=== PATIENT | male | born 1950 | race Two or more races ===

== ENCOUNTER 2016-07-15 19:34 | Emergency (ER) | payer MEDICARE, OTHER ==
[~2016-07-15] VITALS: Ht 175.3 cm; Wt 70.8 kg
[~2016-07-15 19:34] MED LIST: CLOP75TA28; DARUNAVIR; DOCU-94; EMTR200C4; GLIP-110; HYDR25TA4; METF-370; METO-291; PRAVACHOL; RIFA150C; RITO100T; ZOLP10TA PO
[2016-07-16 01:14] LABS: Basophils # (auto) 0 uL; Basophils % (auto) 0.3 % (0.0-2.0); Eosinophils # (auto) 0 uL; Eosinophils % (auto) 0.3 % (0.0-7.0); Hematocrit 38.4 % (41.0-53.0); Hemoglobin 12.6 g/dL (13.5-17.5); Lymphocytes # (auto) 0.5 uL; Lymphocytes % (auto) 8.2 % (10.0-50.0); Mean Corpuscular Hemoglobin 27.7 pg (28.0-32.0); Mean Corpuscular Hgb Conc. 32.9 g/dL (32.0-36.0); Mean Corpuscular Volume 84.2 fL (80.0-100.0); Mean Platelet Volume 6.4 fL (7.4-10.4); Monocytes # (auto) 0.8 uL; Monocytes % (auto) 13.1 % (0.0-12.0); Neutrophils % (auto) 78.1 % (37.0-80.0); Platelet Count (auto) 161 10^3/uL (140-450); Red Cell Distribution Width 12.8 % (11.6-16.0); SUSPECT VIEW TRANSMISSION; White Blood Cell 6.3 10^3/uL (4.4-10.8)
[2016-07-16] MEDS ORDERED: SODIUM CHLORIDE 0.9% 1,000 ML IVB ONE (01:14)
[2016-07-16 01:32] LABS: Albumin 2.9 g/dL (3.4-5.0); BUN/Creatinine Ratio 18.7; Calcium 8.4 mg/dL (8.5-10.1); Potassium 4.2 mmol/L (3.5-5.1)
[2016-07-16 01:35] LABS: Bilirubin, Total 1.1 mg/dL (0.2-1.0); Total Protein 7.4 g/dL (6.4-8.2)
[2016-07-16 01:37] LABS: Magnesium 2.7 mg/dL (1.6-2.6)
[2016-07-16 01:39] LABS: INR 0.96 (0.9-1.15); Partial Thromboplastin Time 27.7 sec (22.64-33.71); Prothrombin Time 10.5 sec (9.37-12.3)
[2016-07-16 01:56] LABS: Temperature: 23.1 C (20.0-25.0)
[2016-07-16] MEDS ORDERED: SODIUM CHLORIDE 0.9% 1,000 ML IV ONE (02:45)
[2016-07-16 07:28] LABS: BUN/Creatinine Ratio 23.6; Calcium 7.4 mg/dL (8.5-10.1); Potassium 3.4 mmol/L (3.5-5.1)
[2016-07-16 07:42] VITALS: BP 112/67
== END 2016-07-16 09:26 | disposition home or self-care (01) ==
LOC: ER 19:40
DX: N17.9 Acute kidney failure, unspecified (principal); I25.810 Atherosclerosis of coronary artery bypass graft(s) without angina pectoris; E11.9 Type 2 diabetes mellitus without complications; I10 Essential (primary) hypertension; Z95.1 Presence of aortocoronary bypass graft; F17.210 Nicotine dependence, cigarettes, uncomplicated
CPT/HCPCS: 36415; 70450; 71010; 80048; 80053; 82962; 83735; 83880; 84484; 85025; 85610; 85730; 93005; 96360; 96361; 99285; J7030

== ENCOUNTER 2016-12-25 13:42 | Inpatient (IN) | payer MEDICARE, OTHER ==
[~2016-12-25] VITALS: Ht 175.3 cm; Wt 75.1 kg
[~2016-12-25 13:42] MED LIST changes: -METO-291; +METO1TAB9
[2016-12-25] MEDS ORDERED: DEXTROSE (50%) 50ML SYRG IV PRN (15:15)
[2016-12-25] MEDS ORDERED: PROMETHAZINE HCL 25 MG/ML 1ML IV PRN (15:15)
[2016-12-25] MEDS ORDERED: ATORVASTATIN 20 MG TAB PO ONE (15:15)
[2016-12-25] MEDS ORDERED: ASPirin 81 mg TAB PO ONE (15:15)
[2016-12-25] MEDS ORDERED: LACTULOSE 20Gm/30ML SOLN PO PRN (15:15)
[2016-12-25] MEDS ORDERED: TEMAZEPAM 15 MG CAP PO PRN (15:15)
[2016-12-25] MEDS ORDERED: ACETAMINOPHEN 500 MG TAB PO PRN (15:15)
[2016-12-25] MEDS ORDERED: NITROGLYCERIN 0.4 MG SL TAB SL PRN (15:15)
[2016-12-25] MEDS ORDERED: LORazepam 0.5 MG TAB PO PRN (15:15)
[2016-12-25] MEDS ORDERED: MORPHINE SULFATE 10 MG/ML INJ 1ML SDV IV PRN (15:15)
[2016-12-25 15:36] LABS: INR 0.98 (0.9-1.15); Partial Thromboplastin Time 26.1 sec (22.64-33.71); Prothrombin Time 10.7 sec (9.37-12.3)
[2016-12-25 15:39] LABS: Blood Alcohol < 3.0 mg/dL (0-5); Magnesium 2.3 mg/dL (1.6-2.6)
[2016-12-25 15:44] LABS: Alanine Aminotransferase 18 U/L (16-61); Alkaline Phosphatase 125 U/L (45-117); Anion Gap 6 (5-15); Aspartate Aminotransferase 14 U/L (15-37); BUN/Creatinine Ratio 14.5; Bilirubin, Total 0.6 mg/dL (0.2-1.0); Blood Urea Nitrogen 18 mg/dL (7-18); Calcium 8.5 mg/dL (8.5-10.1); Carbon Dioxide 27 mmol/L (21-32); Chloride 103 mmol/L (98-107); GFR African American 75 mL/min; GFR Non-African American 62 mL/min; Glucose 194 mg/dL (74-106); Potassium 3.8 mmol/L (3.5-5.1); Sodium 136 mmol/L (136-145); Total Protein 7.4 g/dL (6.4-8.2)
[2016-12-25 16:16] LABS: Basophils # (auto) 0 uL; Basophils % (auto) 0.6 % (0.0-2.0); Eosinophils # (auto) 0.1 uL; Eosinophils % (auto) 1.8 % (0.0-7.0); Hematocrit 36.9 % (41.0-53.0); Hemoglobin 12.4 g/dL (13.5-17.5); Lymphocytes % (auto) 20.1 % (10.0-50.0); Mean Corpuscular Hemoglobin 28.3 pg (28.0-32.0); Mean Corpuscular Hgb Conc. 33.7 g/dL (32.0-36.0); Mean Corpuscular Volume 83.9 fL (80.0-100.0); Monocytes # (auto) 0.4 uL; Monocytes % (auto) 8.9 % (0.0-12.0); Neutrophils # (auto) 3.2 uL; Neutrophils % (auto) 68.6 % (37.0-80.0); Nucleated Red Blood Cells % 0.2 %; Platelet Count (auto) 153 10^3/uL (140-450); Red Blood Cells 4.39 10^6/uL (4.5-5.90); Red Cell Distribution Width 14.3 % (11.8-14.3); White Blood Cell 4.7 10^3/uL (4.4-10.8)
[2016-12-25] MEDS: SODIUM CHLORIDE 0.9% 1,000 ML IV SCH (16:48)
[2016-12-25] MEDS: InsuLIN REG 1unit/0.01ml Soln (100units/ml) SC SCH ×2 (17:31→21:58)
[2016-12-25] MEDS: ACCU-CHEK COMFORT CURVE STRIP VI SCH ×2 (17:31→21:58)
[2016-12-25 18:08] LABS: Cholesterol 148 mg/dL (< 200); HDL Cholesterol 35 mg/dL (40-59); LDL Cholesterol 97 mg/dL (< 100); Triglycerides 263 mg/dL (< 150)
[2016-12-25] MEDS: MORPHINE SULFATE 10 MG/ML INJ 1ML SDV IV PRN (20:26)
[2016-12-25 21:35] VITALS: BP 148/85
[2016-12-25] MEDS: GABAPENTIN 100 MG CAP PO SCH (21:58)
[2016-12-25 22:00] VITALS: BP 148/85
[2016-12-25] MEDS: ATORVASTATIN 20 MG TAB PO SCH (22:00)
[2016-12-25] MEDS ORDERED: ZOLPIDEM TARTRATE 5 MG TAB PO PRN (22:00)
[2016-12-25] MEDS: HYDROcodone-ACET 5/325MG TAB PO PRN (22:26)
[2016-12-26] MEDS: MORPHINE SULFATE 10 MG/ML INJ 1ML SDV IV PRN ×3 (00:06→22:20)
[2016-12-26] MEDS ORDERED: CARV25TA55 PO (01:53)
[2016-12-26] MEDS ORDERED: LOSA25TA9 PO (01:53)
[2016-12-26] MEDS ORDERED: AMLO5TAB2 PO (01:53)
[2016-12-26] MEDS ORDERED: DOLU50TA PO (01:53)
[2016-12-26] MEDS ORDERED: PREG75CA PO (01:53)
[2016-12-26] MEDS ORDERED: GLIM1TAB2 PO (01:53)
[2016-12-26] MEDS ORDERED: DARU800T2 OR (01:56)
[2016-12-26] MEDS: SODIUM CHLORIDE 0.9% 1,000 ML IV SCH ×2 (03:32→16:27)
[2016-12-26 04:49] VITALS: BP 127/68
[2016-12-26] MEDS ORDERED: INFLUENZA QUAD 2017-2018 0.5 ML SYRG IM ONE (05:00)
[2016-12-26] MEDS ORDERED: PNEUMOCOCCAL VACC POLYS 25 MCG/0.5 ML VIAL IM ONE (05:00)
[2016-12-26 05:52] LABS: Cholesterol 148 mg/dL (< 200); HDL Cholesterol 35 mg/dL (40-59); LDL Cholesterol 98 mg/dL (< 100); Triglycerides 168 mg/dL (< 150)
[2016-12-26] MEDS: ACCU-CHEK COMFORT CURVE STRIP VI SCH ×4 (06:12→22:10)
[2016-12-26] MEDS: InsuLIN REG 1unit/0.01ml Soln (100units/ml) SC SCH ×4 (06:13→22:11)
[2016-12-26 09:00] VITALS: BP 136/83
[2016-12-26] MEDS: DOCUSATE SOD 100 MG CAP PO SCH (09:19)
[2016-12-26] MEDS: HCTZ 25 MG TAB PO SCH (09:20)
[2016-12-26] MEDS: GABAPENTIN 100 MG CAP PO SCH ×2 (09:21→21:28)
[2016-12-26] MEDS: CLOPIDOGREL BISULFATE 75 MG TAB PO SCH (09:21)
[2016-12-26] MEDS: METOPROLOL SUCCINATE XL 50 MG TAB PO SCH (09:22)
[2016-12-26] MEDS: DARUNAVIR PO SCH (09:23)
[2016-12-26] MEDS: EMTRICITABINE 200 MG PO SCH (09:23)
[2016-12-26] MEDS: RIFABUTIN 150 MG PO SCH (09:24)
[2016-12-26] MEDS: RITONAVIR 100 MG TAB (NORVIR) PO SCH (09:24)
[2016-12-26] MEDS ORDERED: ASPirin 81 mg TAB PO SCH (10:00)
[2016-12-26] MEDS ORDERED: ENOXAPARIN SOD 40 MG/0.4 ML SYRINGE SC SCH (10:00)
[2016-12-26 13:00] VITALS: BP 155/78
[2016-12-26 14:32] LABS: Folate (Folic Acid) 18.57 ng/mL (5.38-24)
[2016-12-26 17:00] VITALS: BP 153/77
[2016-12-26] MEDS: HYDROcodone-ACET 5/325MG TAB PO PRN (20:14)
[2016-12-26] MEDS: ATORVASTATIN 20 MG TAB PO SCH (21:28)
[2016-12-26 22:00] VITALS: BP 143/88
[2016-12-26 22:10] LABS: Urine Bacteria NONE SEEN /hpf (None Seen); Urine Blood Negative /uL (Negative); Urine WBC 1 /hpf (0 - 3)
[2016-12-26 22:27] LABS: Alcohol, Urine < 3.0 mg/dL (0-5); Amphetamine Screen, Urine NEGATIVE (NEGATIVE); Barbiturate Scree,Urine NEGATIVE (NEGATIVE); Benzodiazephine Screen, Urine NEGATIVE (NEGATIVE); Cannabinoid Screen, Urine NEGATIVE (NEGATIVE); Cocaine Screen, Urine NEGATIVE (NEGATIVE); Opiate Scree,Urine POSITIVE (NEGATIVE); Phencyclidine Screen, Urine NEGATIVE (NEGATIVE)
[2016-12-27 05:00] VITALS: BP 143/79
[2016-12-27] MEDS: SODIUM CHLORIDE 0.9% 1,000 ML IV SCH (06:24)
[2016-12-27] MEDS: ACCU-CHEK COMFORT CURVE STRIP VI SCH ×2 (06:24→11:30)
[2016-12-27] MEDS: InsuLIN REG 1unit/0.01ml Soln (100units/ml) SC SCH ×2 (06:24→13:53)
[2016-12-27 08:40] VITALS: BP 154/79
[2016-12-27] MEDS: HCTZ 25 MG TAB PO SCH (09:19)
[2016-12-27] MEDS: DOCUSATE SOD 100 MG CAP PO SCH (09:20)
[2016-12-27] MEDS: CLOPIDOGREL BISULFATE 75 MG TAB PO SCH (09:20)
[2016-12-27] MEDS: METOPROLOL SUCCINATE XL 50 MG TAB PO SCH (09:20)
[2016-12-27] MEDS: GABAPENTIN 100 MG CAP PO SCH (09:21)
[2016-12-27] MEDS: RITONAVIR 100 MG TAB (NORVIR) PO SCH (09:22)
[2016-12-27] MEDS: DARUNAVIR PO SCH (10:00)
[2016-12-27] MEDS: RIFABUTIN 150 MG PO SCH (10:00)
[2016-12-27] MEDS: EMTRICITABINE 200 MG PO SCH (10:00)
[2016-12-27 11:11] VITALS: BP 154/79
[2016-12-27] MEDS: MORPHINE SULFATE 10 MG/ML INJ 1ML SDV IV PRN (11:23)
== END 2016-12-27 14:20 | disposition home or self-care (01) | DRG 69 ==
LOC: ER 13:42 → TELE 13:43 → TELE-EAST 21:35
PROVIDERS: ADMIT Internal Medicine; ATTEND Internal Medicine
DX: G45.9 Transient cerebral ischemic attack, unspecified (principal); B20 Human immunodeficiency virus [HIV] disease; E11.21 Type 2 diabetes mellitus with diabetic nephropathy; N18.3 Chronic kidney disease, stage 3 (moderate); E11.42 Type 2 diabetes mellitus with diabetic polyneuropathy; E11.22 Type 2 diabetes mellitus with diabetic chronic kidney disease; E78.5 Hyperlipidemia, unspecified; F17.210 Nicotine dependence, cigarettes, uncomplicated; G47.00 Insomnia, unspecified; I12.9 Hypertensive chronic kidney disease with stage 1 through stage 4 chronic kidney disease, or unspecified chronic kidney disease; I25.10 Atherosclerotic heart disease of native coronary artery without angina pectoris; Z79.02 Long term (current) use of antithrombotics/antiplatelets; Z79.899 Other long term (current) drug therapy; Z81.8 Family history of other mental and behavioral disorders; Z82.49 Family history of ischemic heart disease and other diseases of the circulatory system; Z83.3 Family history of diabetes mellitus; Z86.73 Personal history of transient ischemic attack (TIA), and cerebral infarction without residual deficits; Z95.1 Presence of aortocoronary bypass graft; Z23 Encounter for immunization
CPT/HCPCS: 36415; 70450; 70551; 80053; 80061; 80307; 80320; 81001; 82550; 82607; 82746; 82962; 83036; 83735; 84443; 84484; 85025; 85610; 85652; 85730; 87081; 93005; 93306; 93886; 94761; 96361; 96374; J1815

== ENCOUNTER 2017-11-03 11:57 | Emergency (ER) | payer MEDICARE, OTHER ==
[~2017-11-03] VITALS: Ht 175.3 cm; Wt 72.6 kg
[~2017-11-03 11:57] MED LIST changes: +AMLO5TAB13 PO; +CARV25TA55 PO; +DARU800T2 OR; +DOLU50TA PO; +GLIM1TAB2 PO; +LOSA25TA40 PO; +PREG75CA PO
[2017-11-03] MEDS ORDERED: SODIUM CHLORIDE 0.9% 1,000 ML IVB ONE (12:05)
[2017-11-03 15:19] LABS: Basophils # (auto) 0 uL; Basophils % (auto) 0.4 % (0.0-2.0); Eosinophils # (auto) 0 uL; Eosinophils % (auto) 0.7 % (0.0-7.0); Hematocrit 35.6 % (41.0-53.0); Hemoglobin 12.1 g/dL (13.5-17.5); Lymphocytes # (auto) 0.7 uL; Lymphocytes % (auto) 10.3 % (10.0-50.0); Mean Corpuscular Hemoglobin 27.5 pg (28.0-32.0); Mean Corpuscular Volume 80.9 fL (80.0-100.0); Monocytes # (auto) 0.5 uL; Monocytes % (auto) 6.9 % (0.0-12.0); Neutrophils # (auto) 5.5 uL; Neutrophils % (auto) 81.7 % (37.0-80.0); Platelet Count (auto) 201 10^3/uL (140-450); Red Cell Distribution Width 15.1 % (11.8-14.3); White Blood Cell 6.7 10^3/uL (4.4-10.8)
[2017-11-03 15:26] LABS: Alanine Aminotransferase 15 U/L (16-61); Albumin 3.2 g/dL (3.4-5.0); Alkaline Phosphatase 129 U/L (45-117); Anion Gap 3 (5-15); Aspartate Aminotransferase 15 U/L (15-37); BUN/Creatinine Ratio 16.9; Bilirubin, Total 0.6 mg/dL (0.2-1.0); Blood Urea Nitrogen 31 mg/dL (7-18); Carbon Dioxide 29 mmol/L (21-32); Chloride 104 mmol/L (98-107); GFR African American 48 mL/min; GFR Non-African American 39 mL/min; Glucose 162 mg/dL (74-106); Magnesium 3.1 mg/dL (1.6-2.6); Potassium 4.2 mmol/L (3.5-5.1); Sodium 136 mmol/L (136-145); Total Protein 8.5 g/dL (6.4-8.2)
[2017-11-03] MEDS ORDERED: ACETAMINOPHEN 325 MG TAB PO ONE (15:57)
[2017-11-03] MEDS ORDERED: ACETAMINOPHEN 650 MG RECT SUPP PR ONE (16:00)
[2017-11-03 16:18] VITALS: BP 140/74
== END 2017-11-03 16:20 | disposition home or self-care (01) ==
LOC: ER 11:57 → EDBD 11:57 → ER 16:20
DX: R55 Syncope and collapse (principal); T67.5XXA Heat exhaustion, unspecified, initial encounter; E83.41 Hypermagnesemia; I25.810 Atherosclerosis of coronary artery bypass graft(s) without angina pectoris; E11.9 Type 2 diabetes mellitus without complications; E78.5 Hyperlipidemia, unspecified; I10 Essential (primary) hypertension; F17.210 Nicotine dependence, cigarettes, uncomplicated; Z79.01 Long term (current) use of anticoagulants; Z79.84 Long term (current) use of oral hypoglycemic drugs; Z86.73 Personal history of transient ischemic attack (TIA), and cerebral infarction without residual deficits; Z21 Asymptomatic human immunodeficiency virus [HIV] infection status; Z95.1 Presence of aortocoronary bypass graft
CPT/HCPCS: 36415; 80053; 83735; 84484; 85025; 93005; 94761; 96360; 99285; J7030

== ENCOUNTER 2018-04-27 12:03 | Emergency (ER) | payer MEDICARE, OTHER ==
[~2018-04-27] VITALS: Ht 175.3 cm; Wt 68.0 kg
[2018-04-27 15:37] LABS: Basophils # (auto) 0 uL; Basophils % (auto) 0.3 % (0.0-2.0); Eosinophils # (auto) 0 uL; Lymphocytes # (auto) 0.5 uL; Monocytes # (auto) 0.6 uL; Neutrophils % (auto) 84.3 % (37.0-80.0)
[2018-04-27 15:40] LABS: Eosinophils % (auto) 0.4 % (0.0-7.0); Hematocrit 34.4 % (41.0-53.0); Hemoglobin 11.4 g/dL (13.5-17.5); Lymphocytes % (auto) 7.2 % (10.0-50.0); Mean Corpuscular Volume 78.7 fL (80.0-100.0); Monocytes % (auto) 7.8 % (0.0-12.0); Neutrophils # (auto) 6.4 uL; Platelet Count (auto) 331 10^3/uL (140-450); Red Blood Cells 4.37 10^6/uL (4.5-5.90); Red Cell Distribution Width 15.1 % (11.8-14.3); White Blood Cell 7.6 10^3/uL (4.4-10.8)
[2018-04-27 15:49] LABS: Alanine Aminotransferase 14 U/L (16-61); Albumin 2.3 g/dL (3.4-5.0); Anion Gap 8 (5-15); Aspartate Aminotransferase 17 U/L (15-37); BUN/Creatinine Ratio 16.3; Blood Urea Nitrogen 36 mg/dL (7-18); Calcium 8.9 mg/dL (8.5-10.1); Carbon Dioxide 29 mmol/L (21-32); Chloride 97 mmol/L (98-107); GFR African American 38 mL/min; GFR Non-African American 32 mL/min; Glucose 233 mg/dL (74-106); Magnesium 2.8 mg/dL (1.6-2.6); Sodium 134 mmol/L (136-145)
[2018-04-27 15:54] LABS: Alkaline Phosphatase 154 U/L (45-117); Bilirubin, Total 0.4 mg/dL (0.2-1.0); Total Protein 8.7 g/dL (6.4-8.2)
[2018-04-27 17:10] VITALS: BP 153/70
== END 2018-04-27 17:22 | disposition home or self-care (01) ==
LOC: ER 12:05
DX: R42 Dizziness and giddiness (principal); E11.9 Type 2 diabetes mellitus without complications; E78.5 Hyperlipidemia, unspecified; I10 Essential (primary) hypertension; F17.210 Nicotine dependence, cigarettes, uncomplicated; I25.810 Atherosclerosis of coronary artery bypass graft(s) without angina pectoris; Z79.84 Long term (current) use of oral hypoglycemic drugs; Z79.899 Other long term (current) drug therapy; Z86.73 Personal history of transient ischemic attack (TIA), and cerebral infarction without residual deficits; Z95.1 Presence of aortocoronary bypass graft
CPT/HCPCS: 36415; 70450; 71046; 80053; 82962; 83735; 84484; 85025; 93005

== ENCOUNTER → 2018-09-14 | Outpatient (CLI) | payer MEDICARE, OTHER ==
[~2018-09-14] MED LIST changes: -AMLO5TAB13 PO; +AMLO5TAB15 PO; +ATOR20TA50 PO; +CLOP75TA41 PO; -DARU800T2 OR; +DARU800T3 OR; +EMTR1TAB6 PO; +LOSA-69 PO; -LOSA25TA40 PO; -METF-370; +METF-371 PO; +METO10TA3 PO
[2018-09-14 09:24] VITALS: BP 180/79
[2018-09-14 09:50] VITALS: BP 178/83
--- NOTE | 2018-09-14 09:50 | NUR ---
CHF PT ARRIVED AT THE CHF CLINIC FOR PREOP FOR LHC ON 09/16/18 A/O X 3 0 DISTRESS VSS
--- NOTE | 2018-09-14 09:50 | NUR ---
Pre-Op Discharge Summary: See e-MAR for any medications given for this visit. Pre-op orders received and carried out per MD of EKG, LABS and chest xrays. Patient given a copy of EKG with instructions to go to [facility] out patient for further follow up care.
[2018-09-14 12:07] LABS: Basophils # (auto) 0 uL; Eosinophils # (auto) 0.1 uL; Hemoglobin 11.1 g/dL (13.5-17.5); Lymphocytes # (auto) 0.9 uL; Monocytes # (auto) 0.4 uL; Neutrophils # (auto) 2.3 uL; Nucleated Red Blood Cells % 0.1 %; Red Cell Distribution Width 17.9 % (11.8-14.3); White Blood Cell 3.7 10^3/uL (4.4-10.8)
[2018-09-14 12:10] LABS: Basophils % (auto) 0.6 % (0.0-2.0); Eosinophils % (auto) 2.1 % (0.0-7.0); Hematocrit 33.7 % (41.0-53.0); Mean Corpuscular Hemoglobin 26.1 pg (28.0-32.0); Mean Corpuscular Volume 78.9 fL (80.0-100.0); Monocytes % (auto) 10.2 % (0.0-12.0); Neutrophils % (auto) 62.1 % (37.0-80.0); Platelet Count (auto) 182 10^3/uL (140-450); Red Blood Cells 4.28 10^6/uL (4.5-5.90)
[2018-09-14 12:21] LABS: INR 0.97 (0.9-1.15); Partial Thromboplastin Time 27.5 sec (23.64-32.05)
[2018-09-14 13:33] LABS: Potassium 4.2 mmol/L (3.5-5.1)
[2018-09-14 13:59] LABS: BUN/Creatinine Ratio 28.9; Calcium 8.8 mg/dL (8.5-10.1)
== END | disposition home or self-care (01) ==
LOC: Rad HDHVI 09:05
PROVIDERS: ATTEND Internal Medicine Cardiovascular Disease
DX: Z01.812 Encounter for preprocedural laboratory examination (principal); I70.0 Atherosclerosis of aorta; D64.9 Anemia, unspecified; R79.1 Abnormal coagulation profile; I10 Essential (primary) hypertension; I25.10 Atherosclerotic heart disease of native coronary artery without angina pectoris; I48.91 Unspecified atrial fibrillation; R94.31 Abnormal electrocardiogram [ECG] [EKG]
CPT/HCPCS: 36415; 71046; 80048; 85025; 85610; 85730; 93005; G0463

== ENCOUNTER 2018-09-16 09:51 | Day surgery (SDC) | payer MEDICARE, OTHER ==
[~2018-09-16] VITALS: Ht 175.3 cm; Wt 66.7 kg
[2018-09-16] MEDS ORDERED: LIDOCAINE 2%HCL (LOCAL ANESTH.) INJ 20ML MDV ONE (11:38)
[2018-09-16] MEDS ORDERED: IOHEXOL 350 MG/ML 100ML IJ ONE (11:38)
[2018-09-16] MEDS ORDERED: ANGIOMAX 250 MG VIAL IV ONE (12:32)
[2018-09-16] MEDS ORDERED: MIDAZOLAM HCL 1MG/1ML-2 ML VIAL ONE (12:33)
[2018-09-16] MEDS ORDERED: SODIUM CHL 0.9% 0 ML ONE (12:33)
[2018-09-16] MEDS ORDERED: fentaNYL CITRATE 100 MCG/2 ML VL ONE (12:33)
[2018-09-16] MEDS ORDERED: IODIXANOL 320MG/ML 100ML BTL IV ONE (12:36)
[2018-09-16] MEDS ORDERED: hydrALAZINE HCL 20 MG/ML VL ONE (12:49)
[2018-09-16] MEDS ORDERED: HYDROcodone-ACET 5/325MG TAB ONE (13:10)
[2018-09-16] MEDS ORDERED: ACETAMINOPHEN 500 MG TAB PO PRN (13:15)
[2018-09-16] MEDS ORDERED: HYDROcodone-ACET 5/325MG TAB PO PRN (13:15)
[2018-09-16] MEDS ORDERED: ONDANSETRON HCL 4 MG/2 ML VIAL IV PRN (13:15)
== END 2018-09-16 15:15 | disposition home or self-care (01) ==
LOC: CATH 09:51
PROVIDERS: ATTEND Internal Medicine Cardiovascular Disease
DX: I25.810 Atherosclerosis of coronary artery bypass graft(s) without angina pectoris (principal); I10 Essential (primary) hypertension; E78.5 Hyperlipidemia, unspecified; I73.9 Peripheral vascular disease, unspecified; E11.9 Type 2 diabetes mellitus without complications; F17.210 Nicotine dependence, cigarettes, uncomplicated; Z21 Asymptomatic human immunodeficiency virus [HIV] infection status; Z79.84 Long term (current) use of oral hypoglycemic drugs; Z79.899 Other long term (current) drug therapy; Z98.890 Other specified postprocedural states
CPT/HCPCS: 93455; C1760; C1894; J0360; J1644; J2250; J3010; J7030; Q9967; 93459; 99152

== ENCOUNTER → 2018-11-25 | Outpatient (CLI) | payer MEDICARE, OTHER | END | disposition home or self-care (01) | LOC: Rad HDHVI 12:34 | PROVIDERS: ATTEND Internal Medicine Cardiovascular Disease | DX: I08.8 Other rheumatic multiple valve diseases (principal) | CPT/HCPCS: 93306 ==

== ENCOUNTER 2018-12-02 14:36 | Inpatient (IN) | payer MEDICARE, OTHER ==
[~2018-12-02] VITALS: Ht 175.3 cm; Wt 67.1 kg
[2018-12-02 15:16] LABS: Basophils # (auto) 0 uL; Basophils % (auto) 0.7 % (0.0-2.0); Eosinophils # (auto) 0.1 uL; Eosinophils % (auto) 1.7 % (0.0-7.0); Hematocrit 32.4 % (41.0-53.0); Hemoglobin 10.7 g/dL (13.5-17.5); Lymphocytes # (auto) 0.9 uL; Lymphocytes % (auto) 21.1 % (10.0-50.0); Mean Corpuscular Hemoglobin 27.7 pg (28.0-32.0); Mean Corpuscular Hgb Conc. 33.1 g/dL (32.0-36.0); Mean Corpuscular Volume 83.6 fL (80.0-100.0); Monocytes # (auto) 0.4 uL; Monocytes % (auto) 8.9 % (0.0-12.0); Neutrophils % (auto) 67.6 % (37.0-80.0); Platelet Count (auto) 188 10^3/uL (140-450); Red Blood Cells 3.87 10^6/uL (4.5-5.90); Red Cell Distribution Width 16.4 % (11.8-14.3); White Blood Cell 4.5 10^3/uL (4.4-10.8)
[2018-12-02 15:25] LABS: Albumin 3.2 g/dL (3.4-5.0); Calcium 8.3 mg/dL (8.5-10.1); Potassium 3.8 mmol/L (3.5-5.1)
[2018-12-02 15:28] LABS: BUN/Creatinine Ratio 16.2; Bilirubin, Total 0.7 mg/dL (0.2-1.0); Total Protein 7.8 g/dL (6.4-8.2)
[2018-12-02] MEDS ORDERED: FUROSEMIDE 40 MG/4 ML VIAL IV ONE (16:30)
[2018-12-02] MEDS ORDERED: LORazepam 2MG/ML-1ML VIAL IV PRN (19:00)
[2018-12-02] MEDS ORDERED: DEXTROSE (50%) 50ML SYRG IV PRN (19:00)
[2018-12-02] MEDS ORDERED: NITROGLYCERIN 0.4 MG SL TAB SL PRN (19:00)
[2018-12-02] MEDS ORDERED: MORPHINE SULF INJ 2 MG/ML SYRINGE 1ML IV PRN (19:00)
[2018-12-02] MEDS ORDERED: ONDANSETRON HCL 4 MG/2 ML VIAL IV PRN (19:00)
[2018-12-02] MEDS: MORPHINE SULF INJ 2 MG/ML SYRINGE 1ML IV PRN (19:28)
[2018-12-02 20:15] VITALS: BP 178/111
--- NOTE | 2018-12-02 20:15 | NUR ---
Telemetry admit from NIGEL HAYWOOD admitted to Telemetry unit. Patient oriented to Keya rodriguez RN, unit, room, bed, and unit policies regarding patient care and visiting hours. Patient now on continuous telemetry monitoring, tele box #36 and telemetry reading on arrival to unit is SINUS RHYTHM. Patient weighed by bed scale and encouraged to call if they need something. All questions and concerns addressed, patient verbalized understanding.
--- NOTE | 2018-12-02 20:58 | NUR ---
NEW ORDER CALLED AND SPOKE WITH PATIENT WAS REQUESTING AMBIEN TO SLEEP NEW ORDER RECEIVED FOR AMBIEN 10MG PO QHS ORDER READ BACK AND VERIFIED. WILL CARRY OUT ORDER
[2018-12-02] MEDS: ACCU-CHEK COMFORT CURVE STRIP VI SCH (21:17)
[2018-12-02] MEDS: ZOLPIDEM TARTRATE 5 MG TAB PO PRN (21:17)
[2018-12-02] MEDS: InsuLIN REG 1unit/0.01ml Soln (100units/ml) SC SCH (21:17)
[2018-12-02] MEDS: hydrALAZINE HCL 20 MG/ML VL IV PRN (21:22)
[2018-12-02 22:00] VITALS: BP 178/111
[2018-12-02 22:22] VITALS: BP 133/50
--- NOTE | 2018-12-02 22:30 | NUR ---
IV removal TO LEFT AC DUE TO PATIENT C/O PAIN AND DISCOMFORT IV DC'd with clean sterile technique, catheter fully intact. Pressure dressing applied to site. Patient tolerated well.
--- NOTE | 2018-12-02 22:45 | NUR ---
IV insertion IV access obtained, via clean sterile technique by inserting 22 gauge catheter at RIGHT FOREARM after 1 attempt. IV secured properly. No trauma to site. Patient tolerated well.
[2018-12-03] MEDS: MORPHINE SULF INJ 2 MG/ML SYRINGE 1ML IV PRN ×6 (00:43→22:01)
[2018-12-03 05:00] VITALS: BP 163/118
[2018-12-03 05:24] LABS: Basophils # (auto) 0.1 uL; Basophils % (auto) 1.3 % (0.0-2.0); Eosinophils # (auto) 0.1 uL; Eosinophils % (auto) 1.8 % (0.0-7.0); Hematocrit 32.8 % (41.0-53.0); Hemoglobin 10.9 g/dL (13.5-17.5); Lymphocytes # (auto) 0.8 uL; Lymphocytes % (auto) 17.6 % (10.0-50.0); Mean Corpuscular Hemoglobin 27.6 pg (28.0-32.0); Mean Corpuscular Hgb Conc. 33.4 g/dL (32.0-36.0); Mean Corpuscular Volume 82.8 fL (80.0-100.0); Monocytes # (auto) 0.4 uL; Monocytes % (auto) 9.2 % (0.0-12.0); Neutrophils % (auto) 70.1 % (37.0-80.0); Nucleated Red Blood Cells % 0.1 %; Platelet Count (auto) 175 10^3/uL (140-450); Red Blood Cells 3.96 10^6/uL (4.5-5.90); Red Cell Distribution Width 16.4 % (11.8-14.3); White Blood Cell 4.3 10^3/uL (4.4-10.8)
[2018-12-03 05:28] LABS: Potassium 3.7 mmol/L (3.5-5.1)
[2018-12-03 05:30] VITALS: BP 152/77
[2018-12-03 05:32] LABS: Albumin 3.2 g/dL (3.4-5.0); BUN/Creatinine Ratio 17.3; Calcium 8.5 mg/dL (8.5-10.1)
[2018-12-03 05:35] LABS: Total Protein 7.6 g/dL (6.4-8.2)
[2018-12-03] MEDS: ACCU-CHEK COMFORT CURVE STRIP VI SCH ×4 (06:26→21:32)
[2018-12-03] MEDS: InsuLIN REG 1unit/0.01ml Soln (100units/ml) SC SCH ×4 (06:29→22:04)
--- NOTE | 2018-12-03 07:06 | NUR ---
CLOSING PATIENT SLEEPING AT THIS TIME. NO S/S OF DISTRESS NOTED. CALL LIGHT WITHIN REACH WILL ENDORSE CARE TO AM SHIFT RN
--- NOTE | 2018-12-03 07:30 | NUR ---
Opening Shift Note Assuming care of patient at this time. Patient is awake and alert. Patient is complaining of pain 10/10. Will medicate according to doctor's orders. Patient shows no signs or symptoms of distress or shortness of breath. Instructed patient on the plan of care for today and to call for assistance as needed. Call light within reach. Will continue to round hourly and as needed.
[2018-12-03 08:42] VITALS: BP 183/100
--- NOTE | 2018-12-03 09:53 | NUR ---
Call from Technical Solutions Engineer Patient has been running bigeminy and trigeminy. Notified Dr. Siddiqi. Dr. Siddiqi verbalized understanding.
[2018-12-03] MEDS ORDERED: AZITHROMYCIN 500MG/ 250ML 250 ML IV ONE (10:00)
[2018-12-03] MEDS ORDERED: cefTRIAXone 1GM/50ML D5W 50 ML IV ONE (10:00)
[2018-12-03] MEDS ORDERED: hydrALAZINE HCL 20 MG/ML VL IV PRN (10:00)
[2018-12-03] MEDS: hydrALAZINE HCL 20 MG/ML VL IV PRN ×2 (10:59→21:28)
--- NOTE | 2018-12-03 12:02 | NUR ---
NUTRITION CONSULT/ASSESSMENT NOTES Please refer to link notes of nutrition screen form filed under the intervention section of the plan of care for further details. Est. Needs: 2000 kcal to 2350 kcal (30-35 kcal/kgBW), 54 gms to 67 gms pro (0.8-1.0 gms/kgBW). Will continue to monitor pertinent labs and reassess nutrient need prn Thank you for this consult. Addendum: 12/03/18 at [address] Amended: Links added.
--- NOTE | 2018-12-03 13:01 | NUR ---
Call from Dr. Mark Received report from WILMER Fritz, that Dr. Mark called to place new orders. Will notify patient that a new urine sample is needed.
[2018-12-03 13:30] VITALS: BP 156/96
[2018-12-03 17:44] VITALS: BP 147/80
--- NOTE | 2018-12-03 18:51 | NUR ---
Dr. Clayton at bedside Dr. Clayton at bedside discussing plan of care with patient. Patient will need pacemaker once infection is clear, Dr. Clayton possibly to do procedure before discharge. Addendum: 12/03/18 at 1854 by MARIA E OWEN RN RN Dr. Clayton at bedside earlier today. Note was written late.
--- NOTE | 2018-12-03 19:11 | NUR ---
Closing Shift Note Patient resting in bed. Patient has been medicated for pain. Patient shows no signs or symptoms of distress. Will endorse care to the shift production associate RN.
--- NOTE | 2018-12-03 21:00 | NUR ---
RECEIVE IN BED WATCHING TV ISOLATION MAINTAINED
[2018-12-03 22:00] VITALS: BP 193/105
[2018-12-03] MEDS: ZOLPIDEM TARTRATE 5 MG TAB PO PRN (22:01)
[2018-12-04 05:06] LABS: Basophils # (auto) 0 uL; Eosinophils # (auto) 0.1 uL; Hematocrit 29.1 % (41.0-53.0); Hemoglobin 9.8 g/dL (13.5-17.5); Lymphocytes # (auto) 0.9 uL; Lymphocytes % (auto) 21.5 % (10.0-50.0); Mean Corpuscular Hemoglobin 27.9 pg (28.0-32.0); Mean Corpuscular Hgb Conc. 33.8 g/dL (32.0-36.0); Mean Corpuscular Volume 82.7 fL (80.0-100.0); Monocytes # (auto) 0.4 uL; Monocytes % (auto) 10.9 % (0.0-12.0); Neutrophils # (auto) 2.6 uL; Neutrophils % (auto) 63.6 % (37.0-80.0); Nucleated Red Blood Cells % 0.1 %; Platelet Count (auto) 151 10^3/uL (140-450); Red Blood Cells 3.52 10^6/uL (4.5-5.90); Red Cell Distribution Width 16.1 % (11.8-14.3); White Blood Cell 4.1 10^3/uL (4.4-10.8)
[2018-12-04] MEDS: hydrALAZINE HCL 20 MG/ML VL IV PRN ×2 (05:28→21:45)
[2018-12-04 05:29] VITALS: BP 164/106
[2018-12-04 05:31] LABS: Albumin 2.7 g/dL (3.4-5.0); Calcium 8.3 mg/dL (8.5-10.1); Potassium 3.7 mmol/L (3.5-5.1)
[2018-12-04 05:34] LABS: BUN/Creatinine Ratio 17.8; Bilirubin, Total 0.6 mg/dL (0.2-1.0); Total Protein 6.6 g/dL (6.4-8.2)
[2018-12-04] MEDS: MORPHINE SULF INJ 2 MG/ML SYRINGE 1ML IV PRN ×3 (05:36→21:53)
[2018-12-04] MEDS: InsuLIN REG 1unit/0.01ml Soln (100units/ml) SC SCH ×4 (06:42→21:55)
[2018-12-04] MEDS: ACCU-CHEK COMFORT CURVE STRIP VI SCH ×4 (06:42→21:55)
[2018-12-04 08:20] VITALS: BP 148/73
[2018-12-04 09:00] VITALS: BP 148/73
[2018-12-04] MEDS: cefTRIAXone 1GM/50ML D5W 50 ML IV SCH (09:03)
[2018-12-04] MEDS: AZITHROMYCIN 500MG/ 250ML 250 ML IV SCH (10:12)
[2018-12-04 13:00] VITALS: BP 134/83
[2018-12-04 17:00] VITALS: BP 139/59
--- NOTE | 2018-12-04 18:20 | NUR ---
Patient requested for moderate pain medication, paged supervisor purification hospitalist.
--- NOTE | 2018-12-04 18:22 | NUR ---
Spoke with Ventura HART, new orders received, see emar for orders.
[2018-12-04] MEDS: HYDROcodone-ACET 5/325MG TAB PO PRN (18:55)
--- NOTE | 2018-12-04 19:02 | NUR ---
Patient signed AMA to go out side to smoke. NOC RN aware and present.
--- NOTE | 2018-12-04 21:00 | NUR ---
RECEIVE IN ROOM IS USING MOTORIZED CHAIR TO GO DOWNSTAIRS.EXPLAINED TO HIM HE SHOULD INFORM NURSE BEFORE LEAVING THE FLOOR IS ON TELEMETRY WITH FREQUENT PVC MRSA PRECAUTION MAINTAINED
[2018-12-04 21:30] VITALS: BP 167/97
[2018-12-04] MEDS: ZOLPIDEM TARTRATE 5 MG TAB PO PRN (21:53)
[2018-12-05 05:23] VITALS: BP 146/70
[2018-12-05 05:26] LABS: Basophils # (auto) 0.1 uL; Basophils % (auto) 1.6 % (0.0-2.0); Eosinophils # (auto) 0.1 uL; Hematocrit 28.4 % (41.0-53.0); Hemoglobin 9.6 g/dL (13.5-17.5); Lymphocytes # (auto) 0.7 uL; Lymphocytes % (auto) 19.1 % (10.0-50.0); Mean Corpuscular Hemoglobin 28.4 pg (28.0-32.0); Mean Corpuscular Hgb Conc. 33.9 g/dL (32.0-36.0); Mean Corpuscular Volume 83.7 fL (80.0-100.0); Monocytes # (auto) 0.5 uL; Monocytes % (auto) 13.4 % (0.0-12.0); Neutrophils # (auto) 2.2 uL; Neutrophils % (auto) 62.9 % (37.0-80.0); Platelet Count (auto) 138 10^3/uL (140-450); Red Cell Distribution Width 16.2 % (11.8-14.3); White Blood Cell 3.5 10^3/uL (4.4-10.8)
[2018-12-05 05:44] LABS: Albumin 2.7 g/dL (3.4-5.0); BUN/Creatinine Ratio 20.1; Calcium 8.1 mg/dL (8.5-10.1); Potassium 3.7 mmol/L (3.5-5.1)
[2018-12-05 05:46] LABS: Bilirubin, Total 0.4 mg/dL (0.2-1.0); Total Protein 6.6 g/dL (6.4-8.2)
[2018-12-05] MEDS: InsuLIN REG 1unit/0.01ml Soln (100units/ml) SC SCH ×4 (06:45→21:36)
[2018-12-05] MEDS: ACCU-CHEK COMFORT CURVE STRIP VI SCH ×4 (06:45→21:36)
[2018-12-05] MEDS: MORPHINE SULF INJ 2 MG/ML SYRINGE 1ML IV PRN ×3 (06:47→19:56)
--- NOTE | 2018-12-05 08:00 | NUR ---
Opening Shift Note Assumed care of patient, awake, alert and oriented X4. No S/S of distress/SOB, complains of right leg pain, 8/10, Cooney Copeland scale, informed will medicate with prescribed pain medication. Tele# 36, sinus rhythm @ 84 bpm. IV to right wrist, 20 gauge, patent and saline locked. Right foot with all toes amputated, black scab intact, no drainage noted, open to air. Instructed on POC and to call for assist PRN, verbalized understanding. Bed locked, in lowest position, call light within reach, will continue to monitor for changes Q1hr and PRN.
[2018-12-05 09:00] VITALS: BP 194/90
[2018-12-05] MEDS: cefTRIAXone 1GM/50ML D5W 50 ML IV SCH (09:26)
[2018-12-05] MEDS: HYDROcodone-ACET 5/325MG TAB PO PRN ×3 (09:26→21:36)
[2018-12-05] MEDS ORDERED: INFLUENZA QUAD 2019-2020 0.5ml SYRG IM ONE (10:00)
[2018-12-05] MEDS ORDERED: PNEUMOCOCCAL VACC POLYS 25 MCG/0.5 ML VIAL IM ONE (10:00)
[2018-12-05] MEDS: AZITHROMYCIN 500MG/ 250ML 250 ML IV SCH (10:14)
[2018-12-05] MEDS: hydrALAZINE HCL 20 MG/ML VL IV PRN ×2 (10:17→10:47)
[2018-12-05] MEDS ORDERED: ZOLPIDEM TARTRATE 5 MG TAB PO PRN (11:45)
--- NOTE | 2018-12-05 11:45 | NUR ---
CARDIOLOGY Dr Clayton at bedside for Cardiology follow up, new orders received and followed through. Patient updated on plan of care, verbalized understanding.
[2018-12-05] MEDS ORDERED: CARVEDILOL 12.5 MG TAB PO ONE (12:00)
[2018-12-05] MEDS ORDERED: CLOPIDOGREL BISULFATE 75 MG TAB PO ONE (12:00)
[2018-12-05] MEDS ORDERED: GLIMEPIRIDE 2 MG TAB PO ONE (12:00)
[2018-12-05] MEDS ORDERED: ISOSORBIDE MONONITRATE ER 60 MG TAB PO ONE (12:00)
[2018-12-05] MEDS ORDERED: DOCUSATE SOD 100 MG CAP PO ONE (12:00)
[2018-12-05] MEDS: GLIMEPIRIDE 2 MG TAB PO SCH (12:00)
[2018-12-05 13:00] VITALS: BP 160/83
[2018-12-05 16:47] VITALS: BP 82/42
--- NOTE | 2018-12-05 19:17 | NUR ---
Care endorsed to WILMER Joyner, night nurse.
--- NOTE | 2018-12-05 19:20 | NUR ---
RECEIVED PATIENT, AWAKE, ALERT, ORIENTED X4. NO S/S OF RESPIRATORY DISTRESS, C/O PAIN ON THE RIGHT LOWER LEG. ORIENTED ON PLAN OF CARE. BED IS LOCKED AND IN LOWEST POSITION, SIDE RAILS UP X2, CALL LIGHT WITHIN REACH. WILL CONTINUE TO MONITOR
[2018-12-05 19:52] VITALS: BP 136/72
[2018-12-05] MEDS: ZOLPIDEM TARTRATE 5 MG TAB PO PRN (21:35)
[2018-12-05] MEDS: PREGABALIN CAPSULE 75 MG CAP PO SCH (21:35)
[2018-12-05 22:00] VITALS: BP 134/62
[2018-12-05] MEDS: CARVEDILOL 12.5 MG TAB PO SCH (22:00)
[2018-12-06] MEDS: MORPHINE SULF INJ 2 MG/ML SYRINGE 1ML IV PRN ×2 (04:59→11:01)
[2018-12-06 05:00] VITALS: BP 137/67
[2018-12-06 05:34] LABS: Basophils # (auto) 0 uL; Basophils % (auto) 1.3 % (0.0-2.0); Eosinophils # (auto) 0.1 uL; Hematocrit 27.8 % (41.0-53.0); Hemoglobin 9.2 g/dL (13.5-17.5); Lymphocytes # (auto) 0.7 uL; Lymphocytes % (auto) 19.6 % (10.0-50.0); Mean Corpuscular Hemoglobin 27.8 pg (28.0-32.0); Mean Corpuscular Hgb Conc. 33.1 g/dL (32.0-36.0); Monocytes # (auto) 0.4 uL; Monocytes % (auto) 11.8 % (0.0-12.0); Neutrophils # (auto) 2.3 uL; Neutrophils % (auto) 63.3 % (37.0-80.0); Platelet Count (auto) 146 10^3/uL (140-450); Red Blood Cells 3.31 10^6/uL (4.5-5.90); Red Cell Distribution Width 16.3 % (11.8-14.3); White Blood Cell 3.6 10^3/uL (4.4-10.8)
[2018-12-06 05:46] LABS: Calcium 8.2 mg/dL (8.5-10.1); Potassium 4.1 mmol/L (3.5-5.1)
[2018-12-06 05:48] LABS: Albumin 2.6 g/dL (3.4-5.0)
[2018-12-06 05:51] LABS: Bilirubin, Total 0.4 mg/dL (0.2-1.0); Total Protein 6.4 g/dL (6.4-8.2)
[2018-12-06] MEDS: HYDROcodone-ACET 5/325MG TAB PO PRN ×2 (06:29→17:36)
[2018-12-06] MEDS: InsuLIN REG 1unit/0.01ml Soln (100units/ml) SC SCH ×3 (06:30→17:33)
[2018-12-06] MEDS: ACCU-CHEK COMFORT CURVE STRIP VI SCH ×3 (06:30→17:25)
--- NOTE | 2018-12-06 07:36 | NUR ---
CARE ENDORSED TO AM SHIFT RN
[2018-12-06 09:00] VITALS: BP 161/79
[2018-12-06] MEDS ORDERED: ATORVASTATIN 20 MG TAB PO SCH (10:00)
[2018-12-06] MEDS: CARVEDILOL 12.5 MG TAB PO SCH (10:00)
[2018-12-06] MEDS ORDERED: DOCUSATE SOD 100 MG CAP PO SCH (10:00)
[2018-12-06] MEDS ORDERED: CLOPIDOGREL BISULFATE 75 MG TAB PO SCH (10:00)
[2018-12-06] MEDS ORDERED: amLODIPine BESYLATE 5 MG TAB PO SCH ×2 (10:00)
[2018-12-06] MEDS ORDERED: ISOSORBIDE MONONITRATE ER 60 MG TAB PO SCH (10:00)
[2018-12-06] MEDS: cefTRIAXone 1GM/50ML D5W 50 ML IV SCH (10:11)
[2018-12-06] MEDS: PREGABALIN CAPSULE 75 MG CAP PO SCH (10:14)
[2018-12-06] MEDS: GLIMEPIRIDE 2 MG TAB PO SCH (10:18)
[2018-12-06] MEDS: AZITHROMYCIN 500MG/ 250ML 250 ML IV SCH (12:21)
--- NOTE | 2018-12-06 12:38 | NUR ---
Nutrition Follow-up Notes Wt.: 67.1 kg as of yesterday. Pt's asleep, no signs of distress noted earlier, currently on Consistent Standard Carb: 60 gms/meal diet with adequate PO intake aeb 90% ave. consumed meals (x6) in last 2.5 days. Noted pt's for active Wound, Pulmonary, Nephrology and Cardiology consults. Est. Needs: 2000 kcal to 2350 kcal (30-35 kcal/kgBW), 54 gms to 67 gms pro (0.8-1.0 gms/kgBW). 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 Pls refer for wound care consult prn. GI: Pt had 2x BM this morning per urban design consultant. PES: Increased nutrient needs r/t current/chronic medical/nutritional status aeb 92 IBW, BMI 17.6kg/m2, decreased muscle mass, decreased appetite, reported wt loss Altered nutrition related lab values r/t current/chronic medical condition aeb hyperglycemia, elev. renal labs, mild hypoalbuminemia Will continue to monitor PO intake, skin status, pertinent labs and weight trend. F/u in 3 to 5 days. Rec.: 1.) Consider Consistent Standard Carb: 60 gms/meal, Cardiac, Renal Specific: 50 gms pro, 2 gms Na diet, if renal labs continue trending up with Glucerna Shakes 1 carton BID prn. 2.) Continue close supervision during meals 3.) If Albumin continues trending down with improved renal labs, consider Prostat 1 pkt BID. 4.) Refer pt to CDE/RD for further nutrition education and weight monitoring upon discharge. 5.) Continue current plan of care.
[2018-12-06 13:00] VITALS: BP 135/68
--- NOTE | 2018-12-06 16:16 | NUR ---
Patient resting in bed with even and unlabored respirations, no distress noted. Patient talking on his personal cellphone. Call light within reach. Will continue to monitor q1hr & PRN.
--- NOTE | 2018-12-06 16:24 | NUR ---
assessment Patient is a 68 year old male who is alert and oriented. Patients cognitive abilities are intact. Prior to admission patient lived home with his brother Michael and functioned with assistance. Per patient he will return home to his prior living arrangements post discharge and family will transport him home. Patient informed me he has a scooter for home use. Patient informed me he has good family support. Patient informed me his PCP is Dr Clyaton. Patient has been admitted for CHF. Patient is aware of his diagnosis. Patient may benefit from home health safety on discharge. I informed patient he has a right to speak to a social work specialist regarding all care. I informed patient he has a right to participate in any and all discharge planning. Patient does not have a POA and advanced directive. I have offered patient information on POA and advanced directives. I informed the patient the advantages and benefits of having an Advanced Directive. Patient verbalized understanding and agreed to discharge plan home. Addendum: 12/06/18 at 1628 by Marifer SOUZA Amended: Links added.
[2018-12-06 17:00] VITALS: BP 138/70
--- NOTE | 2018-12-06 17:03 | NUR ---
Patient off unit Patient has AMA to smoke in hard chart.
--- NOTE | 2018-12-06 17:30 | NUR ---
Patient returned to unit via his personal motorized scooter. Respirations even and unlabored, no distress noted. Patient transferred self from scooter to bed with no complications. Call light within reach. Visitor at bedside.
--- NOTE | 2018-12-06 17:53 | NUR ---
was at bedside - Dr. Devang DIAS was at bedside discussing POC with the patient. This RN was at bedside. Patient clear for discharge per MD. PNA and Influenza vaccination to be administered in MD's office tomorrow (12/07/18) at patient's scheduled appointment at 10:00 per MD.
--- NOTE | 2018-12-06 19:15 | NUR ---
Discharge Discharge education and paperwork provided to the patient per MD order. Patient instructed on scheduled follow up appointment and the order for home health. Patient verbalized understanding. IV removed with clean technique, catheter intact. Dressing applied. Patient tolerated well, no trauma to site. Telemonitor removed and returned. Patient collected all personal belongings. Respirations even and unlabored, no distress noted. Patient taken to private vehicle via his personal scooter with family member at his side.
[2019-01-02] MEDS ORDERED: FUR20T (08:39)
[2019-01-02] MEDS ORDERED: ROPI0.5T18 (08:39)
[2019-01-02] MEDS ORDERED: ATOR10TA52 (08:39)
[2019-01-02] MEDS ORDERED: PANT40T (08:39)
[2019-01-02] MEDS ORDERED: AMLO10TA13 (08:39)
[2019-01-02] MEDS ORDERED: MEGE40TA15 (08:39)
[2019-01-02] MEDS ORDERED: DONE5TAB31 (08:39)
[2019-01-02] MEDS ORDERED: SPIR25TA8 (08:39)
[2019-01-02] MEDS ORDERED: RITO100T5 (08:39)
[2019-01-02] MEDS ORDERED: RASA1TAB4 (08:39)
[2019-01-02] MEDS ORDERED: POTA10TA79 (08:39)
[2019-01-02] MEDS ORDERED: DARU1TAB3 (08:39)
[2019-01-02] MEDS ORDERED: GLI2T (08:39)
== END 2018-12-06 19:15 | disposition home health service (06) | DRG 291 ==
LOC: ER 14:36 → EEVIPCON 14:36 → TELE 14:37 → TELE-CENTR 20:20
PROVIDERS: ADMIT Internal Medicine; ATTEND Internal Medicine
DX: I11.0 Hypertensive heart disease with heart failure (principal); J18.9 Pneumonia, unspecified organism; I50.33 Acute on chronic diastolic (congestive) heart failure; I25.10 Atherosclerotic heart disease of native coronary artery without angina pectoris; E11.65 Type 2 diabetes mellitus with hyperglycemia; N19 Unspecified kidney failure; E11.21 Type 2 diabetes mellitus with diabetic nephropathy; E78.5 Hyperlipidemia, unspecified; E11.40 Type 2 diabetes mellitus with diabetic neuropathy, unspecified; D64.9 Anemia, unspecified; F17.210 Nicotine dependence, cigarettes, uncomplicated; Z95.1 Presence of aortocoronary bypass graft; Z79.02 Long term (current) use of antithrombotics/antiplatelets; Z79.84 Long term (current) use of oral hypoglycemic drugs; Z79.899 Other long term (current) drug therapy; Z80.3 Family history of malignant neoplasm of breast; Z81.8 Family history of other mental and behavioral disorders; Z82.49 Family history of ischemic heart disease and other diseases of the circulatory system; Z86.73 Personal history of transient ischemic attack (TIA), and cerebral infarction without residual deficits; Z83.3 Family history of diabetes mellitus; Z89.421 Acquired absence of other right toe(s); Z28.21 Immunization not carried out because of patient refusal
CPT/HCPCS: 36415; 71046; 71250; 80053; 82962; 83735; 83880; 84484; 85025; 87081; 94761; 96374; 96375; G0378; J0696; J1815; J2405

== ENCOUNTER → 2019-01-03 | Outpatient (CLI) | payer MEDICARE, OTHER ==
[~2019-01-03] VITALS: Ht 175.3 cm; Wt 71.2 kg
[~2019-01-03] MED LIST changes: +AMLO10TA13; +ATOR10TA52; +DARU1TAB3; +DONE5TAB31; +FUR20T; +GLI2T; +MEGE40TA15; +PANT40T; +POTA10TA79; +RASA1TAB4; +RITO100T5; +ROPI0.5T18; +SPIR25TA8
== END | disposition home or self-care (01) ==
LOC: Rad HDHVI 13:33
PROVIDERS: ATTEND Internal Medicine Cardiovascular Disease
DX: I50.23 Acute on chronic systolic (congestive) heart failure (principal); I11.0 Hypertensive heart disease with heart failure; E29.1 Testicular hypofunction; R06.02 Shortness of breath; F17.200 Nicotine dependence, unspecified, uncomplicated; Z95.1 Presence of aortocoronary bypass graft; I25.10 Atherosclerotic heart disease of native coronary artery without angina pectoris; I63.9 Cerebral infarction, unspecified; E11.9 Type 2 diabetes mellitus without complications; Z21 Asymptomatic human immunodeficiency virus [HIV] infection status
CPT/HCPCS: 78472; 96374; 96375; A9505

== ENCOUNTER 2019-02-04 17:55 | Inpatient (IN) | payer MEDICARE, OTHER ==
[~2019-02-04] VITALS: Ht 175.3 cm; Wt 67.1 kg
[~2019-02-04 17:55] MED LIST changes: -GLIM1TAB2 PO; +GLIM1TAB3 PO
[2019-02-04 18:29] LABS: Basophils # (auto) 0 uL; Eosinophils # (auto) 0.1 uL; Hematocrit 30.5 % (41.0-53.0); Lymphocytes # (auto) 0.7 uL; Lymphocytes % (auto) 18.9 % (10.0-50.0); Mean Corpuscular Hemoglobin 27.1 pg (28.0-32.0); Mean Corpuscular Hgb Conc. 32.6 g/dL (32.0-36.0); Mean Corpuscular Volume 83.2 fL (80.0-100.0); Monocytes # (auto) 0.3 uL; Monocytes % (auto) 8.7 % (0.0-12.0); Neutrophils # (auto) 2.4 uL; Neutrophils % (auto) 68.4 % (37.0-80.0); Platelet Count (auto) 141 10^3/uL (140-450); Red Blood Cells 3.67 10^6/uL (4.5-5.90); Red Cell Distribution Width 15.6 % (11.8-14.3); White Blood Cell 3.5 10^3/uL (4.4-10.8)
[2019-02-04 18:44] LABS: Calcium 8.5 mg/dL (8.5-10.1); Potassium 4.4 mmol/L (3.5-5.1)
[2019-02-04 18:49] LABS: Bilirubin, Total 0.6 mg/dL (0.2-1.0); Total Protein 7.3 g/dL (6.4-8.2)
[2019-02-05 01:21] LABS: Urine Bacteria FEW /hpf (None Seen); Urine Blood TRACE /uL (Negative); Urine Specific Gravity 1.012 (1.001-1.035); Urine WBC 1 /hpf (0 - 3)
[2019-02-05] MEDS ORDERED: HYDROcodone-ACET 10/325MG TAB PO ONE (05:15)
[2019-02-05] MEDS ORDERED: ONDANSETRON HCL 4 MG/2 ML VIAL IV ONE (05:15)
[2019-02-05] MEDS ORDERED: HYDROcodone-ACET 5/325MG TAB PO ONE (10:00)
[2019-02-05] MEDS ORDERED: ONDANSETRON HCL 4 MG/2 ML VIAL IV PRN (14:45)
[2019-02-05 17:20] VITALS: BP 147/85
--- NOTE | 2019-02-05 17:30 | NUR ---
PT ARRIVES TO ROOM 235. ALERT, APPROPRIATE. STATES COMFORTABLE AT THIS TIME. ADMIT WILMER WHITEHEAD CONDUCTING ASSESSMENT.
[2019-02-05 17:52] VITALS: BP 155/91
[2019-02-05] MEDS ORDERED: CLON0.1T PO (18:14)
[2019-02-05] MEDS ORDERED: POTA1TAB61 PO (18:14)
[2019-02-05] MEDS ORDERED: DARU800T3 OR (18:14)
[2019-02-05] MEDS ORDERED: ISOS60TA24 PO (18:14)
[2019-02-05] MEDS ORDERED: LOSA100T30 PO (18:14)
[2019-02-05] MEDS ORDERED: RITO100T PO (18:14)
[2019-02-05] MEDS: SUCRALFATE 1 GM TAB PO SCH (18:45)
--- NOTE | 2019-02-05 18:47 | NUR ---
REQUESTS TO HAVE AMBIEN TO SLEEP TONIGHT AND STATES HE ALSO TAKES NORCO AT HOME. CALL OUT TO HOSPITALIST TO RENEW HOME MEDS. AND ACCUCHECKS
[2019-02-05 20:00] VITALS: BP 154/89
[2019-02-05] MEDS: MORPHINE SULF INJ 2 MG/ML SYRINGE 1ML IV PRN (20:21)
[2019-02-05] MEDS ORDERED: ZOLPIDEM TARTRATE 5 MG TAB PO PRN (21:30)
[2019-02-05] MEDS ORDERED: DEXTROSE (50%) 50ML SYRG IV PRN (21:30)
[2019-02-05 22:00] VITALS: BP 154/89
[2019-02-05] MEDS: InsuLIN REG 1unit/0.01ml Soln (100units/ml) SC SCH (22:00)
[2019-02-05] MEDS: HYDROcodone-ACET 5/325MG TAB PO PRN (22:05)
[2019-02-05] MEDS: ACCU-CHEK COMFORT CURVE STRIP VI SCH (22:18)
[2019-02-06] MEDS ORDERED: SUCRALFATE 1 GM/10 ML ORAL SUSP ONE ×2 (00:15→06:39)
[2019-02-06 05:55] VITALS: BP 144/83
[2019-02-06] MEDS ORDERED: SUCRALFATE 1 GM TAB PO ONE (06:40)
[2019-02-06] MEDS: HYDROcodone-ACET 5/325MG TAB PO PRN ×2 (06:47→13:00)
[2019-02-06] MEDS: SUCRALFATE 1 GM TAB PO SCH ×4 (06:48→18:27)
[2019-02-06] MEDS: ACCU-CHEK COMFORT CURVE STRIP VI SCH ×4 (06:49→21:44)
[2019-02-06] MEDS: InsuLIN REG 1unit/0.01ml Soln (100units/ml) SC SCH ×4 (06:49→21:44)
[2019-02-06 07:12] LABS: Basophils # (auto) 0 uL; Basophils % (auto) 1.1 % (0.0-2.0); Eosinophils # (auto) 0.1 uL; Eosinophils % (auto) 3.9 % (0.0-7.0); Hematocrit 28.1 % (41.0-53.0); Hemoglobin 9.4 g/dL (13.5-17.5); Lymphocytes # (auto) 0.5 uL; Lymphocytes % (auto) 22.2 % (10.0-50.0); Mean Corpuscular Hemoglobin 27.7 pg (28.0-32.0); Mean Corpuscular Hgb Conc. 33.5 g/dL (32.0-36.0); Mean Corpuscular Volume 82.5 fL (80.0-100.0); Monocytes # (auto) 0.3 uL; Monocytes % (auto) 12.8 % (0.0-12.0); Neutrophils # (auto) 1.5 uL; Platelet Count (auto) 115 10^3/uL (140-450); Red Cell Distribution Width 15.8 % (11.8-14.3); White Blood Cell 2.5 10^3/uL (4.4-10.8)
[2019-02-06 07:20] LABS: Albumin 2.5 g/dL (3.4-5.0); Potassium 4.4 mmol/L (3.5-5.1)
[2019-02-06 07:23] LABS: BUN/Creatinine Ratio 15.2; Bilirubin, Total 0.6 mg/dL (0.2-1.0); Total Protein 6.3 g/dL (6.4-8.2)
--- NOTE | 2019-02-06 07:45 | NUR ---
OPENING SHIFT NOTE: Received report from NOC RNAllen. Assumed care of patient. Patient resting in bed, denies pain. Bed in lowest position, rails x2 up and call light within reach. Updated on plan of care. Will continue to monitor.
[2019-02-06 09:00] VITALS: BP 165/106
[2019-02-06] MEDS ORDERED: PANTOPRAZOLE 40 MG/10 ML VIAL INJ IV SCH (10:00)
--- NOTE | 2019-02-06 11:25 | NUR ---
Patient complaining of feeling like he's going to 'pass out' due to not being able to eat. Patient states his last meal was Thursday02/05/19 at 2:30pm. Patient is currently NPO. Paged Dr Siddiqi for clarification of orders.
--- NOTE | 2019-02-06 12:30 | NUR ---
NIGEL MORE states they want to leave the floor Against Medical Advice (AMA) to go outside and smoke. Patient encouraged to stay on floor and not smoke. Dr Siddiqi notified of patient's wishes. Patient advised of the risks and benefits of leaving AMA. Patient verbalized understanding and signed required AMA form.
[2019-02-06 12:51] VITALS: BP 168/83
[2019-02-06] MEDS ORDERED: GLIMEPIRIDE 2 MG TAB PO ONE (13:30)
[2019-02-06] MEDS ORDERED: CARVEDILOL 12.5 MG TAB PO ONE (13:30)
[2019-02-06] MEDS ORDERED: cloNIDine HCL 0.1 MG TAB PO ONE (13:30)
[2019-02-06] MEDS ORDERED: ISOSORBIDE MONONITRATE ER 60 MG TAB PO ONE (13:30)
[2019-02-06] MEDS ORDERED: CLOPIDOGREL BISULFATE 75 MG TAB PO ONE (13:30)
[2019-02-06] MEDS ORDERED: POTASSIUM CHL 10 Meq TABLET PO ONE (13:30)
--- NOTE | 2019-02-06 15:18 | NUR ---
MD: Dr Kaitlyn Little at bedside to see patient.
[2019-02-06 17:00] VITALS: BP 105/54
--- NOTE | 2019-02-06 17:30 | NUR ---
AMA SMOKE: Patient informed RN that he was leaving unit to smoke. Patient advise to be gone no more than 30 minutes. Patient verbalized understanding.
[2019-02-06] MEDS: ATORVASTATIN 20 MG TAB PO SCH (18:27)
--- NOTE | 2019-02-06 19:24 | NUR ---
Opening Shift Note Assumed care of patient, awake and alert. No S/S of distress/SOB or pain. Instructed on POC and to call for assist PRN, will continue to monitor for changes Q1hr and PRN. bed in low position and call light within reach
--- NOTE | 2019-02-06 19:24 | NUR ---
CLOSING SHIFT NOTE: Report given to NOC RNRhonda. Endorsed care of patient.
[2019-02-06 19:45] LABS: INR 1.12 (0.9-1.15); Partial Thromboplastin Time 28.2 sec (23.64-32.05)
[2019-02-06] MEDS: RITONAVIR 100 MG TAB (NORVIR) PO SCH (21:44)
[2019-02-06] MEDS: CARVEDILOL 12.5 MG TAB PO SCH (21:45)
[2019-02-06] MEDS: ZOLPIDEM TARTRATE 5 MG TAB PO PRN (21:46)
[2019-02-06 22:00] VITALS: BP 123/72
[2019-02-07] MEDS: HYDROcodone-ACET 5/325MG TAB PO PRN ×4 (00:56→23:05)
[2019-02-07] MEDS: SUCRALFATE 1 GM TAB PO SCH ×5 (00:56→23:27)
[2019-02-07 05:40] VITALS: BP 157/77
[2019-02-07] MEDS: InsuLIN REG 1unit/0.01ml Soln (100units/ml) SC SCH ×4 (07:00→21:18)
[2019-02-07] MEDS: ACCU-CHEK COMFORT CURVE STRIP VI SCH ×4 (07:00→21:13)
--- NOTE | 2019-02-07 07:45 | NUR ---
Opening Shift Note Assumed care of patient, awake and alert. No S/S of distress/SOB or pain. Instructed on POC and to call for assist PRN, will continue to monitor for changes Q1hr and PRN. NPO after breakfast for EGD.
--- NOTE | 2019-02-07 08:17 | NUR ---
report given to dayshift
[2019-02-07] MEDS ORDERED: LIDOCAINE VISCOUS 2% 15ML UD ONE (08:25)
[2019-02-07] MEDS ORDERED: fentaNYL CITRATE 100 MCG/2 ML VL ONE (08:25)
[2019-02-07] MEDS ORDERED: MIDAZOLAM HCL 5 MG/ML-1ML VIAL ONE (08:25)
[2019-02-07] MEDS ORDERED: SODIUM CHLORIDE LOCK 10 ML ONE (08:25)
[2019-02-07] MEDS ORDERED: diphenhdrAMINE HCL 50 MG/1 ML VL ONE (08:26)
[2019-02-07 09:00] VITALS: BP 167/99
[2019-02-07] MEDS: RITONAVIR 100 MG TAB (NORVIR) PO SCH ×2 (10:00→21:12)
[2019-02-07] MEDS ORDERED: HCTZ 25 MG TAB PO SCH (10:00)
[2019-02-07] MEDS: CLOPIDOGREL BISULFATE 75 MG TAB PO SCH (10:00)
[2019-02-07] MEDS: CARVEDILOL 12.5 MG TAB PO SCH ×2 (10:08→21:12)
[2019-02-07] MEDS: cloNIDine HCL 0.1 MG TAB PO SCH (10:08)
[2019-02-07] MEDS: POTASSIUM CHL 10 Meq TABLET PO SCH (10:09)
[2019-02-07] MEDS: ISOSORBIDE MONONITRATE ER 60 MG TAB PO SCH (10:09)
[2019-02-07] MEDS: GLIMEPIRIDE 2 MG TAB PO SCH (10:15)
--- NOTE | 2019-02-07 11:02 | NUR ---
EGD Phone call received from Dr. Dumas. Plavix was administered on 02/06/2019. No EGD procedure this AM.
[2019-02-07] MEDS: PANTOPRAZOLE 40 MG/10 ML VIAL INJ IV SCH (12:12)
[2019-02-07] MEDS: MORPHINE SULF INJ 2 MG/ML SYRINGE 1ML IV PRN (12:21)
[2019-02-07 13:00] VITALS: BP 119/69
--- NOTE | 2019-02-07 14:50 | NUR ---
Hospitalist Zev Siddiqi at bedside.
--- NOTE | 2019-02-07 14:59 | NUR ---
Discharge Verbal order from Dr. Siddiqi to discharge patient. He should follow-up with MD in office on Saturday February 09, 2019.
--- NOTE | 2019-02-07 15:05 | NUR ---
AMA to smoke Patient left unit to go smoke.
--- NOTE | 2019-02-07 15:13 | NUR ---
Dr. Dumas Rounding Dr. Dumas rounded, however, the patient off unit to smoke.
--- NOTE | 2019-02-07 15:25 | NUR ---
Complaint of Dizziness Patient brought back to the unit by securities complaining that he felt dizzy as if he was going to faint. Vitals checked and blood pressure slightly elevated. Will notify
--- NOTE | 2019-02-07 15:55 | NUR ---
Hold Discharge Telephone orders received from Dr. Siddiqi to hold discharge and consult with Dr. Clayton and Dr. Murphy.
[2019-02-07 17:00] VITALS: BP 161/92
[2019-02-07] MEDS: ATORVASTATIN 20 MG TAB PO SCH (17:54)
--- NOTE | 2019-02-07 19:40 | NUR ---
Opening Shift Note Assumed care of patient, awake and alert, oriented x 4, follows direction, clear speech. On room air with even and unlabored respirations, no S/S of distress or SOB. PIV left forearm 20 intact and patent. Patient turns independently in bed. Patient ambulates with steady gait. Bed low locked position with side rails up x 2 and call light within reach. Instructed on POC and to call for assist PRN, will continue to monitor for changes Q1hr and PRN.
[2019-02-07] MEDS ORDERED: LORazepam 2MG/ML-1ML VIAL IV PRN (21:00)
[2019-02-07] MEDS: ZOLPIDEM TARTRATE 5 MG TAB PO PRN (21:13)
[2019-02-07 21:54] VITALS: BP 147/75
[2019-02-08 05:43] VITALS: BP 162/94
[2019-02-08] MEDS: SUCRALFATE 1 GM TAB PO SCH (06:06)
[2019-02-08] MEDS: HYDROcodone-ACET 5/325MG TAB PO PRN (06:07)
[2019-02-08] MEDS: ACCU-CHEK COMFORT CURVE STRIP VI SCH (06:07)
[2019-02-08] MEDS: InsuLIN REG 1unit/0.01ml Soln (100units/ml) SC SCH (06:07)
--- NOTE | 2019-02-08 06:48 | NUR ---
Closing Note patient resting in bed on room air with even and unlabored respirations, no s/s of distress. Bed low locked position with side rails up x 2 and call light within reach, bed alarm on.
[2019-02-08 06:57] LABS: Folate (Folic Acid) 10.96 ng/mL (5.38-24)
[2019-02-08 09:00] VITALS: BP_SYST 166; BP_SYST 172; BP_SYST 179; BP_DIAS 101; BP_DIAS 93; BP_DIAS 96
[2019-02-08] MEDS: CLOPIDOGREL BISULFATE 75 MG TAB PO SCH (10:00)
[2019-02-08] MEDS: RITONAVIR 100 MG TAB (NORVIR) PO SCH (10:00)
[2019-02-08] MEDS: PANTOPRAZOLE 40 MG/10 ML VIAL INJ IV SCH (10:00)
[2019-02-08] MEDS: cloNIDine HCL 0.1 MG TAB PO SCH (10:01)
[2019-02-08] MEDS: GLIMEPIRIDE 2 MG TAB PO SCH (10:01)
[2019-02-08] MEDS: POTASSIUM CHL 10 Meq TABLET PO SCH (10:02)
[2019-02-08] MEDS: CARVEDILOL 12.5 MG TAB PO SCH (10:02)
[2019-02-08] MEDS: ISOSORBIDE MONONITRATE ER 60 MG TAB PO SCH (10:03)
--- NOTE | 2019-02-08 10:55 | NUR ---
OPENING SHIFT NOTE: PATIENT AWAKE IN BED. A/OX4, RESPIRATIONS EVEN AND UNLABORED. SCOOTER AT BEDSIDE. UPDATED ON PLAN OF CARE. FALL PRECAUTIONS IN PLACE. CALL LIGHT WITHIN REACH. WILL CONTINUE TO MONITOR.
--- NOTE | 2019-02-08 11:00 | NUR ---
EEG COMPLETED AT BEDSIDE. WILMER HERRON AWARE.
--- NOTE | 2019-02-08 11:08 | NUR ---
EEG COMPLETED, AND PATIENT TAKEN DOWN TO MRI.
--- NOTE | 2019-02-08 11:20 | NUR ---
DR. TOMY MCCORMACK, PATIENT NOT IN ROOM. AT MRI.
--- NOTE | 2019-02-08 11:55 | NUR ---
DR. AKERS ROUNDING. CLEARED TO GO HOME, AND IF PATIENT WOULD LIKE PROCEED WITH PARKINSON TREATMENT, FOLLOW UP IN OUTPATIENT OFFICE. DELPHINE'S OFFICE TO CALL PATIENT AND ARRANGE APPOINTMENT TIME FOR PARKINSON'S TREMORS.
--- NOTE | 2019-02-08 12:08 | NUR ---
PATIENT DISCHARGED HOME: PATIENT LEFT WITH ALL BELONGINGS. EDUCATED ON MEDICATIONS, AND FOLLOW UP APPOINTMENTS. PATIENT VERBALIZED UNDERSTANDING. PATIENT GIVEN ALL EDUCATION MATERIALS. RESPIRATIONS EVEN AND UNLABORED, NO SIGNS OF DISTRESS NOTED UPON DISCHARGED.
--- NOTE | 2019-02-08 16:42 | NUR ---
Pt discharged before SW was able to do assessment
== END 2019-02-08 12:16 | disposition home or self-care (01) | DRG 378 ==
LOC: ER 17:59 → TELE-EAST 18:00
PROVIDERS: ADMIT Internal Medicine; ATTEND Internal Medicine
DX: K92.2 Gastrointestinal hemorrhage, unspecified (principal); E44.0 Moderate protein-calorie malnutrition; J90 Pleural effusion, not elsewhere classified; B20 Human immunodeficiency virus [HIV] disease; E11.21 Type 2 diabetes mellitus with diabetic nephropathy; K40.20 Bilateral inguinal hernia, without obstruction or gangrene, not specified as recurrent; D63.8 Anemia in other chronic diseases classified elsewhere; E11.42 Type 2 diabetes mellitus with diabetic polyneuropathy; E11.51 Type 2 diabetes mellitus with diabetic peripheral angiopathy without gangrene; G20 Parkinson's disease; I10 Essential (primary) hypertension; F17.210 Nicotine dependence, cigarettes, uncomplicated; E78.5 Hyperlipidemia, unspecified; R55 Syncope and collapse; Z95.1 Presence of aortocoronary bypass graft; Z89.431 Acquired absence of right foot; Z80.9 Family history of malignant neoplasm, unspecified; Z86.73 Personal history of transient ischemic attack (TIA), and cerebral infarction without residual deficits; Z81.8 Family history of other mental and behavioral disorders; Z82.49 Family history of ischemic heart disease and other diseases of the circulatory system; Z82.61 Family history of arthritis; Z83.3 Family history of diabetes mellitus; Z80.3 Family history of malignant neoplasm of breast; Z86.31 Personal history of diabetic foot ulcer; Z82.3 Family history of stroke; Z68.21 Body mass index [BMI] 21.0-21.9, adult; Z79.02 Long term (current) use of antithrombotics/antiplatelets; Z95.5 Presence of coronary angioplasty implant and graft
CPT/HCPCS: 36415; 70551; 71046; 74176; 80053; 81001; 82565; 82607; 82746; 82962; 83605; 84443; 84484; 85025; 85610; 85730; 86850; 86900; 86901; 93005; 95819; C9113; G0378; J1815; J2250; J2405

== ENCOUNTER → 2019-04-04 | Outpatient (CLI) | payer MEDICARE, OTHER ==
[~2019-04-04] MED LIST changes: -AMLO10TA13; -AMLO5TAB15 PO; -ATOR10TA52; +CLON0.1T PO; -CLOP75TA28; -DARU1TAB3; -DARUNAVIR; -DOCU-94; -DOLU50TA PO; -DONE5TAB31; -EMTR1TAB6 PO; -EMTR200C4; -FUR20T; -GLI2T; -GLIP-110; -HYDR25TA4; +ISOS60TA24 PO; -LOSA-69 PO; +LOSA100T30 PO; -MEGE40TA15; -METF-371 PO; -METO10TA3 PO; -METO1TAB9; -PANT40T; -POTA10TA79; +POTA1TAB61 PO; -PRAVACHOL; -PREG75CA PO; -RASA1TAB4; -RIFA150C; -RITO100T; +RITO100T PO; -RITO100T5; -ROPI0.5T18; -SPIR25TA8
== END | disposition home or self-care (01) ==
LOC: Rad HDHVI 15:00
PROVIDERS: ATTEND Internal Medicine Cardiovascular Disease
DX: I08.8 Other rheumatic multiple valve diseases (principal); I25.5 Ischemic cardiomyopathy; I50.32 Chronic diastolic (congestive) heart failure; R00.2 Palpitations; I27.21 Secondary pulmonary arterial hypertension
CPT/HCPCS: 93306

== ENCOUNTER 2019-04-26 14:26 | Inpatient (IN) | payer MEDICARE, OTHER ==
[~2019-04-26] VITALS: Ht 175.3 cm; Wt 68.3 kg
[~2019-04-26 14:26] MED LIST changes: +LOSA-39 PO
[2019-04-26 17:12] LABS: Basophils # (auto) 0.1 10 ^3/uL (0-0.2); Eosinophils # (auto) 0 10 ^3/uL (0-0.8); Mean Corpuscular Volume 83.4 fL (80.0-100.0); Monocytes # (auto) 0.3 10 ^3/uL (0-1.3)
[2019-04-26 17:13] LABS: Basophils % (auto) 1.5 % (0.0-2.0); Eosinophils % (auto) 0.7 % (0.0-7.0); Hemoglobin 8.6 g/dL (13.5-17.5); Lymphocytes # (auto) 0.5 10 ^3/uL (0.4-5.4); Lymphocytes % (auto) 13.9 % (10.0-50.0); Mean Corpuscular Hemoglobin 27.5 pg (28.0-32.0); Monocytes % (auto) 8.2 % (0.0-12.0); Neutrophils % (auto) 75.7 % (37.0-80.0); Platelet Count (auto) 159 10^3/uL (140-450); Red Blood Cells 3.11 10^6/uL (4.5-5.90); Red Cell Distribution Width 17.7 % (11.8-14.3); White Blood Cell 3.9 10^3/uL (4.4-10.8)
[2019-04-26 17:35] LABS: Albumin 3.2 g/dL (3.4-5.0); Calcium 8.8 mg/dL (8.5-10.1); Magnesium 3.1 mg/dL (1.6-2.6); Potassium 4.7 mmol/L (3.5-5.1)
[2019-04-26 17:40] LABS: BUN/Creatinine Ratio 19.5; Bilirubin, Total 0.9 mg/dL (0.2-1.0); Total Protein 7.8 g/dL (6.4-8.2)
[2019-04-26] MEDS ORDERED: FUROSEMIDE 40 MG/4 ML VIAL IV ONE (17:45)
[2019-04-26] MEDS ORDERED: HYDROcodone-ACET 10/325MG TAB PO ONE (17:45)
[2019-04-26] MEDS: HYDROcodone-ACET 10/325MG TAB PO PRN (19:50)
[2019-04-26] MEDS ORDERED: SUCR1SUS5 PO (20:04)
[2019-04-26] MEDS: SUCRALFATE 1 GM/10 ML ORAL SUSP PO SCH (21:51)
[2019-04-26 22:00] VITALS: BP 138/87
[2019-04-26] MEDS: DARUNAVIR ETHANOLATE 800 MG PO SCH (22:00)
[2019-04-26] MEDS: RITONAVIR 100 MG TAB (NORVIR) PO SCH (22:00)
[2019-04-26] MEDS: CARVEDILOL 12.5 MG TAB PO SCH (22:09)
[2019-04-26] MEDS ORDERED: ZOLPIDEM TARTRATE 5 MG TAB PO ONE (22:45)
[2019-04-26] MEDS ORDERED: DEXTROSE (50%) 50ML SYRG IV PRN (23:00)
[2019-04-26] MEDS: ONDANSETRON HCL 4 MG/2 ML VIAL IV PRN (23:01)
[2019-04-26 23:17] VITALS: BP 138/87
[2019-04-27 05:00] VITALS: BP 128/68
[2019-04-27] MEDS: HYDROcodone-ACET 10/325MG TAB PO PRN ×3 (05:42→22:09)
[2019-04-27] MEDS: ACCU-CHEK COMFORT CURVE STRIP VI SCH ×4 (06:08→22:07)
[2019-04-27] MEDS: InsuLIN REG 1unit/0.01ml Soln (100units/ml) SC SCH ×4 (06:09→22:07)
[2019-04-27] MEDS: SUCRALFATE 1 GM/10 ML ORAL SUSP PO SCH ×4 (06:35→22:06)
[2019-04-27 07:04] LABS: Albumin 2.8 g/dL (3.4-5.0); Calcium 8.3 mg/dL (8.5-10.1); Potassium 4.3 mmol/L (3.5-5.1)
[2019-04-27 07:07] LABS: BUN/Creatinine Ratio 20.1; Bilirubin, Total 0.8 mg/dL (0.2-1.0); Total Protein 6.8 g/dL (6.4-8.2)
[2019-04-27 07:13] LABS: Hemoglobin 7.6 g/dL (13.5-17.5); Lymphocytes # (auto) 0.6 10 ^3/uL (0.4-5.4); Monocytes # (auto) 0.3 10 ^3/uL (0-1.3); Monocytes % (auto) 9.7 % (0.0-12.0); White Blood Cell 3.1 10^3/uL (4.4-10.8)
[2019-04-27 07:15] LABS: Basophils # (auto) 0.1 10 ^3/uL (0-0.2); Basophils % (auto) 1.8 % (0.0-2.0); Eosinophils # (auto) 0.1 10 ^3/uL (0-0.8); Eosinophils % (auto) 1.9 % (0.0-7.0); Hematocrit 23.7 % (41.0-53.0); Lymphocytes % (auto) 20.1 % (10.0-50.0); Mean Corpuscular Hemoglobin 26.9 pg (28.0-32.0); Mean Corpuscular Hgb Conc. 32.1 g/dL (32.0-36.0); Mean Corpuscular Volume 83.9 fL (80.0-100.0); Neutrophils % (auto) 66.5 % (37.0-80.0); Platelet Count (auto) 136 10^3/uL (140-450); Red Blood Cells 2.82 10^6/uL (4.5-5.90); Red Cell Distribution Width 17.2 % (11.8-14.3)
[2019-04-27] MEDS: CARVEDILOL 12.5 MG TAB PO SCH ×2 (08:00→17:43)
[2019-04-27 09:00] VITALS: BP 158/87
[2019-04-27] MEDS: DARUNAVIR ETHANOLATE 800 MG PO SCH ×2 (09:05→22:00)
[2019-04-27] MEDS: ISOSORBIDE MONONITRATE ER 60 MG TAB PO SCH (09:06)
[2019-04-27] MEDS: POTASSIUM CHL 10 Meq TABLET PO SCH (09:09)
[2019-04-27] MEDS: CLOPIDOGREL BISULFATE 75 MG TAB PO SCH (09:09)
[2019-04-27] MEDS: cloNIDine HCL 0.1 MG TAB PO SCH (09:10)
[2019-04-27] MEDS: ATORVASTATIN 20 MG TAB PO SCH (09:11)
[2019-04-27] MEDS: LOSARTAN POTASSIUM 50 MG TAB PO SCH (09:11)
[2019-04-27] MEDS: GLIMEPIRIDE 2 MG TAB PO SCH (09:12)
[2019-04-27] MEDS: RITONAVIR 100 MG TAB (NORVIR) PO SCH ×2 (09:13→22:00)
[2019-04-27] MEDS: ONDANSETRON HCL 4 MG/2 ML VIAL IV PRN (10:00)
[2019-04-27 13:00] VITALS: BP 154/74
[2019-04-27 16:55] VITALS: BP 123/65
[2019-04-27 22:00] VITALS: BP 144/70
[2019-04-27] MEDS: ZOLPIDEM TARTRATE 5 MG TAB PO SCH (22:06)
[2019-04-28 05:42] VITALS: BP 126/66
[2019-04-28] MEDS: InsuLIN REG 1unit/0.01ml Soln (100units/ml) SC SCH ×4 (06:31→22:00)
[2019-04-28] MEDS: SUCRALFATE 1 GM/10 ML ORAL SUSP PO SCH ×4 (06:31→22:00)
[2019-04-28] MEDS: ACCU-CHEK COMFORT CURVE STRIP VI SCH ×4 (06:31→22:00)
[2019-04-28 09:00] VITALS: BP 151/74
[2019-04-28] MEDS: cloNIDine HCL 0.1 MG TAB PO SCH (09:09)
[2019-04-28] MEDS: HYDROcodone-ACET 10/325MG TAB PO PRN ×3 (09:10→17:43)
[2019-04-28] MEDS: CARVEDILOL 12.5 MG TAB PO SCH ×2 (09:11→17:44)
[2019-04-28] MEDS: CLOPIDOGREL BISULFATE 75 MG TAB PO SCH (09:11)
[2019-04-28] MEDS: ISOSORBIDE MONONITRATE ER 60 MG TAB PO SCH (09:11)
[2019-04-28] MEDS: POTASSIUM CHL 10 Meq TABLET PO SCH (09:12)
[2019-04-28] MEDS: LOSARTAN POTASSIUM 50 MG TAB PO SCH (09:13)
[2019-04-28] MEDS: GLIMEPIRIDE 2 MG TAB PO SCH (09:19)
[2019-04-28] MEDS: ATORVASTATIN 20 MG TAB PO SCH (09:19)
[2019-04-28] MEDS: DARUNAVIR ETHANOLATE 800 MG PO SCH ×2 (09:23→22:00)
[2019-04-28 13:00] VITALS: BP 104/55
[2019-04-28] MEDS: RITONAVIR 100 MG TAB (NORVIR) PO SCH (13:14)
[2019-04-28 17:00] VITALS: BP 134/76
[2019-04-28] MEDS: RITONAVIR 100 MG PO SCH (22:00)
[2019-04-28] MEDS: ZOLPIDEM TARTRATE 5 MG TAB PO SCH (22:00)
[2019-04-28 22:04] VITALS: BP 125/71
[2019-04-29] VITALS (15 sets, daily range): BP systolic 119–162; BP diastolic 61–83
[2019-04-29] MEDS: HYDROcodone-ACET 10/325MG TAB PO PRN ×3 (03:30→17:55)
[2019-04-29 05:37] LABS: Basophils # (auto) 0 10 ^3/uL (0-0.2); Eosinophils # (auto) 0.1 10 ^3/uL (0-0.8); Lymphocytes # (auto) 0.6 10 ^3/uL (0.4-5.4); Mean Corpuscular Volume 84.5 fL (80.0-100.0); Monocytes # (auto) 0.3 10 ^3/uL (0-1.3)
[2019-04-29 05:39] LABS: Basophils % (auto) 1.7 % (0.0-2.0); Eosinophils % (auto) 3.1 % (0.0-7.0); Hematocrit 21.1 % (41.0-53.0); Lymphocytes % (auto) 20.4 % (10.0-50.0); Mean Corpuscular Hemoglobin 27.5 pg (28.0-32.0); Mean Corpuscular Hgb Conc. 32.6 g/dL (32.0-36.0); Monocytes % (auto) 10.2 % (0.0-12.0); Neutrophils # (auto) 1.9 10 ^3/uL (1.6-8.6); Neutrophils % (auto) 64.6 % (37.0-80.0); Platelet Count (auto) 130 10^3/uL (140-450); Red Cell Distribution Width 17.2 % (11.8-14.3); White Blood Cell 2.9 10^3/uL (4.4-10.8)
[2019-04-29 05:44] LABS: Hemoglobin 6.9 g/dL (13.5-17.5)
[2019-04-29] MEDS: InsuLIN REG 1unit/0.01ml Soln (100units/ml) SC SCH ×4 (07:19→21:43)
[2019-04-29] MEDS: ACCU-CHEK COMFORT CURVE STRIP VI SCH ×4 (07:19→21:44)
[2019-04-29] MEDS: SUCRALFATE 1 GM/10 ML ORAL SUSP PO SCH ×4 (07:19→21:43)
[2019-04-29 07:36] LABS: Calcium 7.8 mg/dL (8.5-10.1); Potassium 4.5 mmol/L (3.5-5.1)
[2019-04-29] MEDS: RITONAVIR 100 MG PO SCH ×2 (10:00→22:00)
[2019-04-29] MEDS: DARUNAVIR ETHANOLATE 800 MG PO SCH ×2 (10:00→22:00)
[2019-04-29] MEDS: GLIMEPIRIDE 2 MG TAB PO SCH (10:04)
[2019-04-29] MEDS: POTASSIUM CHL 10 Meq TABLET PO SCH (10:04)
[2019-04-29] MEDS: CLOPIDOGREL BISULFATE 75 MG TAB PO SCH (10:04)
[2019-04-29] MEDS: CARVEDILOL 12.5 MG TAB PO SCH ×2 (10:05→17:42)
[2019-04-29] MEDS: ATORVASTATIN 20 MG TAB PO SCH (10:05)
[2019-04-29] MEDS: LOSARTAN POTASSIUM 50 MG TAB PO SCH (10:06)
[2019-04-29] MEDS: ISOSORBIDE MONONITRATE ER 60 MG TAB PO SCH (10:06)
[2019-04-29] MEDS: cloNIDine HCL 0.1 MG TAB PO SCH (10:07)
[2019-04-29] MEDS ORDERED: EPOETIN ALFA 10,000 UNIT/1 ML VIAL SC ONE (15:30)
[2019-04-29] MEDS: hydrALAZINE HCL 20 MG/ML VL IV PRN (18:06)
[2019-04-29] MEDS: ZOLPIDEM TARTRATE 5 MG TAB PO SCH (21:43)
[2019-04-30 05:06] VITALS: BP 140/62
[2019-04-30] MEDS: HYDROcodone-ACET 10/325MG TAB PO PRN ×3 (05:17→22:46)
[2019-04-30] MEDS: ACCU-CHEK COMFORT CURVE STRIP VI SCH ×4 (06:26→22:32)
[2019-04-30] MEDS: SUCRALFATE 1 GM/10 ML ORAL SUSP PO SCH ×4 (06:26→22:32)
[2019-04-30] MEDS: InsuLIN REG 1unit/0.01ml Soln (100units/ml) SC SCH ×4 (06:38→22:45)
[2019-04-30] MEDS: ONDANSETRON HCL 4 MG/2 ML VIAL IV PRN (09:22)
[2019-04-30] MEDS: ATORVASTATIN 20 MG TAB PO SCH (09:25)
[2019-04-30] MEDS: CARVEDILOL 12.5 MG TAB PO SCH ×2 (09:26→16:50)
[2019-04-30] MEDS: cloNIDine HCL 0.1 MG TAB PO SCH (09:26)
[2019-04-30] MEDS: CLOPIDOGREL BISULFATE 75 MG TAB PO SCH (09:26)
[2019-04-30] MEDS: ISOSORBIDE MONONITRATE ER 60 MG TAB PO SCH (09:27)
[2019-04-30] MEDS: LOSARTAN POTASSIUM 50 MG TAB PO SCH (09:27)
[2019-04-30] MEDS: POTASSIUM CHL 10 Meq TABLET PO SCH (09:28)
[2019-04-30] MEDS: GLIMEPIRIDE 2 MG TAB PO SCH (09:29)
[2019-04-30] MEDS: RITONAVIR 100 MG PO SCH ×2 (10:00→22:31)
[2019-04-30] MEDS: DARUNAVIR ETHANOLATE 800 MG PO SCH ×2 (10:00→22:31)
[2019-04-30] MEDS: hydrALAZINE HCL 20 MG/ML VL IV PRN (11:47)
[2019-04-30] MEDS: PANTOPRAZOLE 40 MG TAB PO SCH (12:34)
[2019-04-30 13:00] VITALS: BP 138/63
[2019-04-30 13:55] LABS: Basophils # (auto) 0 10 ^3/uL (0-0.2); Basophils % (auto) 1.1 % (0.0-2.0); Eosinophils # (auto) 0 10 ^3/uL (0-0.8); Eosinophils % (auto) 1.1 % (0.0-7.0); Hematocrit 29.8 % (41.0-53.0); Hemoglobin 9.9 g/dL (13.5-17.5); Lymphocytes # (auto) 0.5 10 ^3/uL (0.4-5.4); Lymphocytes % (auto) 12.1 % (10.0-50.0); Mean Corpuscular Hgb Conc. 33.2 g/dL (32.0-36.0); Mean Corpuscular Volume 84.4 fL (80.0-100.0); Monocytes # (auto) 0.2 10 ^3/uL (0-1.3); Monocytes % (auto) 5.3 % (0.0-12.0); Neutrophils # (auto) 3.1 10 ^3/uL (1.6-8.6); Neutrophils % (auto) 80.4 % (37.0-80.0); Platelet Count (auto) 129 10^3/uL (140-450); Red Blood Cells 3.53 10^6/uL (4.5-5.90); Red Cell Distribution Width 16.2 % (11.8-14.3); White Blood Cell 3.9 10^3/uL (4.4-10.8)
[2019-04-30 17:00] VITALS: BP 116/58
[2019-04-30 22:00] VITALS: BP 145/77
[2019-04-30] MEDS: ZOLPIDEM TARTRATE 5 MG TAB PO SCH (22:31)
[2019-05-01 05:41] VITALS: BP 126/76
[2019-05-01] MEDS: ACCU-CHEK COMFORT CURVE STRIP VI SCH ×4 (06:46→21:52)
[2019-05-01] MEDS: SUCRALFATE 1 GM/10 ML ORAL SUSP PO SCH ×4 (06:46→21:52)
[2019-05-01] MEDS: HYDROcodone-ACET 10/325MG TAB PO PRN ×3 (06:56→18:41)
[2019-05-01] MEDS: InsuLIN REG 1unit/0.01ml Soln (100units/ml) SC SCH ×4 (06:57→22:00)
[2019-05-01] MEDS: CARVEDILOL 12.5 MG TAB PO SCH ×2 (08:33→18:00)
[2019-05-01] MEDS: ISOSORBIDE MONONITRATE ER 60 MG TAB PO SCH (08:34)
[2019-05-01] MEDS: LOSARTAN POTASSIUM 50 MG TAB PO SCH (08:34)
[2019-05-01] MEDS: DARUNAVIR ETHANOLATE 800 MG PO SCH ×2 (08:35→21:51)
[2019-05-01] MEDS: RITONAVIR 100 MG PO SCH ×2 (08:35→21:51)
[2019-05-01] MEDS: cloNIDine HCL 0.1 MG TAB PO SCH (08:35)
[2019-05-01 09:00] VITALS: BP 141/72
[2019-05-01] MEDS: GLIMEPIRIDE 2 MG TAB PO SCH (10:22)
[2019-05-01] MEDS: ATORVASTATIN 20 MG TAB PO SCH (10:23)
[2019-05-01] MEDS: CLOPIDOGREL BISULFATE 75 MG TAB PO SCH (10:23)
[2019-05-01] MEDS: PANTOPRAZOLE 40 MG TAB PO SCH (10:23)
[2019-05-01] MEDS: POTASSIUM CHL 10 Meq TABLET PO SCH (10:23)
[2019-05-01 13:00] VITALS: BP 125/58
[2019-05-01 17:00] VITALS: BP 154/69
[2019-05-01] MEDS: ZOLPIDEM TARTRATE 5 MG TAB PO SCH ×2 (21:51→23:08)
[2019-05-01 22:00] VITALS: BP 153/77
[2019-05-02 05:00] VITALS: BP 174/69
[2019-05-02 06:00] LABS: Basophils # (auto) 0 10 ^3/uL (0-0.2); Basophils % (auto) 1.1 % (0.0-2.0); Eosinophils # (auto) 0.1 10 ^3/uL (0-0.8); Eosinophils % (auto) 2.1 % (0.0-7.0); Hematocrit 33.1 % (41.0-53.0); Hemoglobin 10.9 g/dL (13.5-17.5); Lymphocytes # (auto) 0.5 10 ^3/uL (0.4-5.4); Lymphocytes % (auto) 12.5 % (10.0-50.0); Mean Corpuscular Hemoglobin 28.1 pg (28.0-32.0); Mean Corpuscular Hgb Conc. 32.9 g/dL (32.0-36.0); Mean Corpuscular Volume 85.5 fL (80.0-100.0); Monocytes # (auto) 0.3 10 ^3/uL (0-1.3); Monocytes % (auto) 7.4 % (0.0-12.0); Neutrophils # (auto) 3.3 10 ^3/uL (1.6-8.6); Neutrophils % (auto) 76.9 % (37.0-80.0); Nucleated Red Blood Cells % 0.1 %; Platelet Count (auto) 129 10^3/uL (140-450); Red Blood Cells 3.87 10^6/uL (4.5-5.90); Red Cell Distribution Width 16.7 % (11.8-14.3); White Blood Cell 4.3 10^3/uL (4.4-10.8)
[2019-05-02 06:32] LABS: Calcium 8.4 mg/dL (8.5-10.1); Potassium 5.5 mmol/L (3.5-5.1)
[2019-05-02] MEDS: SUCRALFATE 1 GM/10 ML ORAL SUSP PO SCH ×2 (06:33→11:30)
[2019-05-02] MEDS: ACCU-CHEK COMFORT CURVE STRIP VI SCH ×2 (06:34→11:30)
[2019-05-02] MEDS: hydrALAZINE HCL 20 MG/ML VL IV PRN (06:59)
[2019-05-02] MEDS: HYDROcodone-ACET 10/325MG TAB PO PRN (07:00)
[2019-05-02] MEDS: InsuLIN REG 1unit/0.01ml Soln (100units/ml) SC SCH ×2 (07:01→11:30)
[2019-05-02 08:00] VITALS: BP 158/76
[2019-05-02] MEDS: CARVEDILOL 12.5 MG TAB PO SCH (08:00)
[2019-05-02] MEDS: RITONAVIR 100 MG PO SCH (08:14)
[2019-05-02] MEDS: DARUNAVIR ETHANOLATE 800 MG PO SCH (08:14)
[2019-05-02 08:59] VITALS: BP 152/62
[2019-05-02] MEDS: POTASSIUM CHL 10 Meq TABLET PO SCH (09:54)
[2019-05-02] MEDS: CLOPIDOGREL BISULFATE 75 MG TAB PO SCH (09:54)
[2019-05-02] MEDS: ATORVASTATIN 20 MG TAB PO SCH (09:54)
[2019-05-02] MEDS: PANTOPRAZOLE 40 MG TAB PO SCH (09:54)
[2019-05-02] MEDS: LOSARTAN POTASSIUM 50 MG TAB PO SCH (09:55)
[2019-05-02] MEDS: ISOSORBIDE MONONITRATE ER 60 MG TAB PO SCH (09:55)
[2019-05-02] MEDS: cloNIDine HCL 0.1 MG TAB PO SCH (09:55)
[2019-05-02] MEDS: GLIMEPIRIDE 2 MG TAB PO SCH (10:03)
[2019-05-02 12:48] VITALS: BP 165/87
[2019-05-02 13:34] VITALS: BP 158/76
== END 2019-05-02 14:30 | disposition home health service (06) | DRG 811 ==
LOC: ER 14:26 → TELE 14:27 → TELE-WESTW 21:18
PROVIDERS: ADMIT Internal Medicine; ATTEND Internal Medicine
PROC: 30233N1 Transfusion of Nonautologous Red Blood Cells into Peripheral Vein, Percutaneous Approach (ICD-10-PCS; principal; 2019-04-29)
DX: D62 Acute posthemorrhagic anemia (principal); I50.21 Acute systolic (congestive) heart failure; I13.0 Hypertensive heart and chronic kidney disease with heart failure and stage 1 through stage 4 chronic kidney disease, or unspecified chronic kidney disease; I25.5 Ischemic cardiomyopathy; N18.3 Chronic kidney disease, stage 3 (moderate); E11.51 Type 2 diabetes mellitus with diabetic peripheral angiopathy without gangrene; E78.5 Hyperlipidemia, unspecified; D63.8 Anemia in other chronic diseases classified elsewhere; E11.22 Type 2 diabetes mellitus with diabetic chronic kidney disease; I25.10 Atherosclerotic heart disease of native coronary artery without angina pectoris; Z80.3 Family history of malignant neoplasm of breast; Z81.8 Family history of other mental and behavioral disorders; Z79.02 Long term (current) use of antithrombotics/antiplatelets; Z82.49 Family history of ischemic heart disease and other diseases of the circulatory system; Z86.73 Personal history of transient ischemic attack (TIA), and cerebral infarction without residual deficits; Z95.1 Presence of aortocoronary bypass graft; Z87.891 Personal history of nicotine dependence
CPT/HCPCS: 36415; 71046; 80048; 80053; 82270; 82962; 83735; 84484; 85025; 86850; 86900; 86901; 86920; 87081; 96374; 97163; G0378; J0885; J1815; J2405

== ENCOUNTER 2019-05-06 03:57 | Emergency (ER) | payer MEDICARE, OTHER ==
[~2019-05-06] VITALS: Ht 175.3 cm; Wt 66.7 kg
[~2019-05-06 03:57] MED LIST changes: +SUCR1SUS5 PO
[2019-05-06] MEDS ORDERED: TETANUS-DIPTH-ACEL PERTUSSIS 0.5ML SYR Tdap IM ONE (04:30)
[2019-05-06 04:57] LABS: Basophils # (auto) 0.1 10 ^3/uL (0-0.2); Basophils % (auto) 1.2 % (0.0-2.0); Eosinophils # (auto) 0 10 ^3/uL (0-0.8); Eosinophils % (auto) 0.9 % (0.0-7.0); Hematocrit 34.6 % (41.0-53.0); Hemoglobin 11.3 g/dL (13.5-17.5); Lymphocytes # (auto) 0.4 10 ^3/uL (0.4-5.4); Lymphocytes % (auto) 8.6 % (10.0-50.0); Mean Corpuscular Hemoglobin 28.2 pg (28.0-32.0); Mean Corpuscular Hgb Conc. 32.5 g/dL (32.0-36.0); Mean Corpuscular Volume 86.6 fL (80.0-100.0); Monocytes # (auto) 0.4 10 ^3/uL (0-1.3); Monocytes % (auto) 7.7 % (0.0-12.0); Neutrophils # (auto) 4.1 10 ^3/uL (1.6-8.6); Neutrophils % (auto) 81.6 % (37.0-80.0); Platelet Count (auto) 146 10^3/uL (140-450); Red Cell Distribution Width 17.5 % (11.8-14.3)
[2019-05-06 05:13] LABS: INR 1.18 (0.9-1.15)
[2019-05-06 05:15] LABS: Albumin 3.3 g/dL (3.4-5.0); Calcium 8.8 mg/dL (8.5-10.1); Magnesium 2.7 mg/dL (1.6-2.6); Potassium 5.1 mmol/L (3.5-5.1)
[2019-05-06 05:20] LABS: BUN/Creatinine Ratio 19.9; Bilirubin, Total 1.1 mg/dL (0.2-1.0); Total Protein 7.5 g/dL (6.4-8.2)
[2019-05-06] MEDS ORDERED: MORPHINE SULFATE 4 MG/ML SYR/VIAL IV ONE (06:00)
[2019-05-06] MEDS ORDERED: BACITRACIN TOP OINT 1 UD PKG TOP ONE (06:00)
[2019-05-06] MEDS ORDERED: ONDANSETRON HCL 4 MG/2 ML VIAL IV ONE (06:00)
[2019-05-06 06:08] VITALS: BP 178/98
== END 2019-05-06 06:22 | disposition home or self-care (01) ==
LOC: ER 04:03
DX: S01.01XA Laceration without foreign body of scalp, initial encounter (principal); I11.0 Hypertensive heart disease with heart failure; I50.9 Heart failure, unspecified; J90 Pleural effusion, not elsewhere classified; E78.5 Hyperlipidemia, unspecified; Z86.73 Personal history of transient ischemic attack (TIA), and cerebral infarction without residual deficits; E11.9 Type 2 diabetes mellitus without complications; Z95.1 Presence of aortocoronary bypass graft; Z95.0 Presence of cardiac pacemaker; W19.XXXA Unspecified fall, initial encounter; Y93.89 Activity, other specified; Y99.8 Other external cause status; Y92.89 Other specified places as the place of occurrence of the external cause
CPT/HCPCS: 12002; 36415; 70450; 71045; 72125; 80053; 83735; 83880; 84484; 85025; 85610; 85730; 90471; 90715; 93005; 96374; 96375; 99285; J2270; J2405

== ENCOUNTER 2019-05-09 12:44 | Inpatient (IN) | payer MEDICARE, OTHER ==
[~2019-05-09] VITALS: Ht 170.2 cm; Wt 69.8 kg
[~2019-05-09 12:44] MED LIST changes: +GLIM-5 PO; -GLIM1TAB3 PO
[2019-05-09] MEDS ORDERED: SODIUM CHLORIDE 0.9% 1,000 ML IVB ONE (13:08)
[2019-05-09] MEDS ORDERED: SODIUM CHLORIDE 0.9% 1,000 ML IV ONE (13:08)
[2019-05-09 14:08] LABS: Basophils # (auto) 0 10 ^3/uL (0-0.2); Basophils % (auto) 1.2 % (0.0-2.0); Eosinophils # (auto) 0 10 ^3/uL (0-0.8); Eosinophils % (auto) 0.4 % (0.0-7.0); Hematocrit 33.2 % (41.0-53.0); Hemoglobin 10.6 g/dL (13.5-17.5); Lymphocytes # (auto) 0.3 10 ^3/uL (0.4-5.4); Lymphocytes % (auto) 8.8 % (10.0-50.0); Mean Corpuscular Hemoglobin 27.4 pg (28.0-32.0); Mean Corpuscular Hgb Conc. 31.9 g/dL (32.0-36.0); Mean Corpuscular Volume 85.7 fL (80.0-100.0); Monocytes # (auto) 0.3 10 ^3/uL (0-1.3); Monocytes % (auto) 7.3 % (0.0-12.0); Neutrophils # (auto) 3.1 10 ^3/uL (1.6-8.6); Neutrophils % (auto) 82.3 % (37.0-80.0); Platelet Count (auto) 159 10^3/uL (140-450); Red Blood Cells 3.87 10^6/uL (4.5-5.90); Red Cell Distribution Width 17.4 % (11.8-14.3); White Blood Cell 3.7 10^3/uL (4.4-10.8)
[2019-05-09 14:27] LABS: Albumin 3.3 g/dL (3.4-5.0); Calcium 8.6 mg/dL (8.5-10.1); Potassium 4.7 mmol/L (3.5-5.1)
[2019-05-09 14:33] LABS: BUN/Creatinine Ratio 18.5; Total Protein 7.5 g/dL (6.4-8.2)
[2019-05-09] MEDS ORDERED: cloNIDine HCL 0.1 MG TAB PO ONE (15:00)
[2019-05-09] MEDS ORDERED: ENOXAPARIN SOD 80 MG/0.8ML SYRINGE SC ONE (15:00)
[2019-05-09] MEDS ORDERED: HYDROcodone-ACET 5/325MG TAB PO ONE (15:45)
[2019-05-09] MEDS ORDERED: ONDANSETRON HCL 4 MG/2 ML VIAL IV PRN (17:45)
[2019-05-09] MEDS ORDERED: DEXTROSE (50%) 50ML SYRG IV PRN (17:45)
[2019-05-09] MEDS ORDERED: MORPHINE SULF INJ 2 MG/ML SYRINGE 1ML IV PRN (17:45)
[2019-05-09] MEDS ORDERED: NITROGLYCERIN 0.4 MG SL TAB SL PRN (17:45)
[2019-05-09] MEDS: GLIMEPIRIDE 2 MG TAB PO SCH (18:15)
[2019-05-09] MEDS: MORPHINE SULF INJ 2 MG/ML SYRINGE 1ML IV PRN (20:12)
[2019-05-09 21:00] VITALS: BP 133/83
[2019-05-09] MEDS: CARVEDILOL 12.5 MG TAB PO SCH (21:36)
[2019-05-09] MEDS: SUCRALFATE 1 GM/10 ML ORAL SUSP PO SCH (21:36)
[2019-05-09] MEDS: ATORVASTATIN 20 MG TAB PO SCH (21:36)
[2019-05-09] MEDS: InsuLIN REG 1unit/0.01ml Soln (100units/ml) SC SCH (21:52)
[2019-05-09] MEDS: ACCU-CHEK COMFORT CURVE STRIP VI SCH (21:53)
[2019-05-09 22:45] VITALS: BP 133/83
--- NOTE | 2019-05-09 22:45 | NUR ---
Telemetry admit from NIGEL HAYWOOD admitted to Telemetry unit after SBAR received. Patient oriented to Rosalee Valerio, primary RN, unit, room, bed, and unit policies regarding patient care. Patient now on continuous telemetry monitoring, tele box #5 and telemetry reading on arrival to unit is HR 62 paced. Patient is on room air. Respirations even and unlabored. Patient has no S/S of distress/SOB. Patient weighed by bedscale and encouraged to call if they need something. All questions and concerns addressed, patient verbalized understanding.
[2019-05-09] MEDS: ZOLPIDEM TARTRATE 5 MG TAB PO PRN (23:24)
--- NOTE | 2019-05-09 23:25 | NUR ---
Wound care done Patient's lower left arm skin tear cleansed with NS and pat dry with 4x4 gauze; Optifoam placed. Patient's buttocks/sacral area cleansed with soap and water, barrier cream applied, sacral Optifoam applied.
[2019-05-10] VITALS (7 sets, daily range): BP systolic 128–163; BP diastolic 56–96
[2019-05-10] MEDS: InsuLIN REG 1unit/0.01ml Soln (100units/ml) SC SCH ×4 (07:00→22:37)
--- NOTE | 2019-05-10 07:00 | NUR ---
CLOSING NOTE Patient is on room air. Respirations even and unlabored. Patient has no S/S of distress/SOB.
[2019-05-10] MEDS: ACCU-CHEK COMFORT CURVE STRIP VI SCH ×4 (07:02→22:09)
[2019-05-10] MEDS: SUCRALFATE 1 GM/10 ML ORAL SUSP PO SCH ×4 (07:02→22:07)
[2019-05-10] MEDS ORDERED: PANTOPRAZOLE 40 MG/10 ML VIAL INJ IV SCH (10:00)
[2019-05-10] MEDS: CARVEDILOL 12.5 MG TAB PO SCH ×2 (10:30→22:08)
[2019-05-10] MEDS: GLIMEPIRIDE 2 MG TAB PO SCH (10:30)
[2019-05-10] MEDS: cloNIDine HCL 0.1 MG TAB PO SCH (10:30)
[2019-05-10] MEDS: CLOPIDOGREL BISULFATE 75 MG TAB PO SCH (10:45)
[2019-05-10] MEDS: ISOSORBIDE MONONITRATE ER 60 MG TAB PO SCH (10:45)
--- NOTE | 2019-05-10 12:07 | NUR ---
WOUND CARE NOTE: Wound care in to see patient per wound care request regarding wounds/skin issue that are noted present on admission. Bedside nurse took photograph of patient's wounds/skin issue upon admission for reference. Patient is 68 years old male with admitting diagnosis of Acute Renal Failure. Patient with history of htn,DM,CHF,HIV, CVA. Patient is resting in bed in Rm. 235. Patient is awake, alert and oriented. Patient is in no stated pain at this time. Patient is self turning and repositioning. His Israel score is 19. Patient reported he "tripped and fell last Thursday" sustaining scattered ecchymosis to chest and arms. He has 4xm well approximated stapled laceration to scalp with intact 7 vikas, well approximated incision to L upper chest, pacemaker site and well healed R forefoot stump; area is clean and dry, left open to air. His L forearm has 1x0.8cm open partial thickness skin tear. Wound is red with purple ecchymotic periwound, no drainage/odor noted. Cleansed skin tear with NS,patted dry with gauze,applied Thera honey gel and covered with Opti foam gentle dressing. Patient's Lt and Rt sacrum has dark red non-blanchable redness with dry hyperkeratotic skin. Patient sits most of the time and uses a motorized wheel chair. 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 Cleansed patient's sacrum, patted dry, applied Z Guard cream and covered wound with Opti foam sacral dressing. Patient tolerated well, repositioned for comfort. Bed in low position, call moser on hand with all safety precautions in placed. RECOMMENDATION: Nursing to continue with BID/PRN cleaning and application of Z Guard cream to sacral,buttocks; Q3days/PRN dressing change to L forearm skin tear per MD order, Dietary consult for wounds, redistribute pressure points with pillows, continue monitoring by wound care while patient is hospitalized. Addendum: 05/10/19 at 1556 by Carol Ware RN Amended: Links added.
[2019-05-10] MEDS: MORPHINE SULF INJ 2 MG/ML SYRINGE 1ML IV PRN (13:15)
[2019-05-10] MEDS: HYDROcodone-ACET 5/325MG TAB PO PRN ×2 (17:00→22:13)
[2019-05-10] MEDS ORDERED: RITO100T PO (17:05)
--- NOTE | 2019-05-10 20:15 | NUR ---
Opening Shift Note Assumed care of patient, awake and alert. No S/S of distress/SOB. Patient is on room air. Respirations even and unlabored. Instructed on POC and to call for assist PRN, will continue to monitor for changes Q1hr and PRN.
[2019-05-10] MEDS: PANTOPRAZOLE 40 MG/10 ML VIAL INJ IV SCH (22:07)
[2019-05-10] MEDS: ATORVASTATIN 20 MG TAB PO SCH (22:09)
[2019-05-10] MEDS: ZOLPIDEM TARTRATE 5 MG TAB PO PRN (22:09)
[2019-05-11] MEDS: MORPHINE SULF INJ 2 MG/ML SYRINGE 1ML IV PRN (00:17)
--- NOTE | 2019-05-11 00:39 | NUR ---
Urine sent to lab for urinalysis and urine creatinine, protein, and sodium analysis.
--- NOTE | 2019-05-11 00:50 | NUR ---
Wound care done Buttocks and sacrum cleansed with soap and water, barrier cream applied, and sacral Optifoam applied.
[2019-05-11 01:13] LABS: Urine Bacteria FEW /hpf (None Seen); Urine Blood 1+ /uL (Negative); Urine Hyaline Cast MOD /lpf (0 - 2); Urine Specific Gravity 1.019 (1.001-1.035); Urine WBC 1 /hpf (0 - 3)
[2019-05-11] MEDS: HYDROcodone-ACET 5/325MG TAB PO PRN ×2 (04:18→21:53)
[2019-05-11 05:27] VITALS: BP_SYST 140
[2019-05-11] MEDS: ACCU-CHEK COMFORT CURVE STRIP VI SCH ×4 (06:12→22:10)
[2019-05-11] MEDS: SUCRALFATE 1 GM/10 ML ORAL SUSP PO SCH ×4 (06:12→21:14)
[2019-05-11] MEDS: InsuLIN REG 1unit/0.01ml Soln (100units/ml) SC SCH ×4 (06:28→22:10)
--- NOTE | 2019-05-11 07:00 | NUR ---
CLOSING NOTE No S/S of distress/SOB. Patient is on room air. Respirations even and unlabored.
[2019-05-11 07:06] LABS: Basophils # (auto) 0 10 ^3/uL (0-0.2); Basophils % (auto) 0.8 % (0.0-2.0); Eosinophils # (auto) 0.1 10 ^3/uL (0-0.8); Eosinophils % (auto) 2.4 % (0.0-7.0); Hemoglobin 9.5 g/dL (13.5-17.5); Lymphocytes # (auto) 0.6 10 ^3/uL (0.4-5.4); Mean Corpuscular Hemoglobin 28.2 pg (28.0-32.0); Mean Corpuscular Hgb Conc. 32.8 g/dL (32.0-36.0); Mean Corpuscular Volume 86.1 fL (80.0-100.0); Monocytes # (auto) 0.2 10 ^3/uL (0-1.3); Monocytes % (auto) 8.9 % (0.0-12.0); Neutrophils # (auto) 1.6 10 ^3/uL (1.6-8.6); Neutrophils % (auto) 64.9 % (37.0-80.0); Platelet Count (auto) 126 10^3/uL (140-450); Red Blood Cells 3.37 10^6/uL (4.5-5.90); Red Cell Distribution Width 17.4 % (11.8-14.3); White Blood Cell 2.5 10^3/uL (4.4-10.8)
[2019-05-11 07:24] LABS: Albumin 2.7 g/dL (3.4-5.0); BUN/Creatinine Ratio 20.2; Calcium 8.1 mg/dL (8.5-10.1); Potassium 4.9 mmol/L (3.5-5.1); Uric Acid 6.9 mg/dL (3.5-7.2)
[2019-05-11 07:55] LABS: Bilirubin, Total 0.7 mg/dL (0.2-1.0); Total Protein 6.6 g/dL (6.4-8.2)
[2019-05-11] MEDS: GLIMEPIRIDE 2 MG TAB PO SCH (08:00)
[2019-05-11 08:11] LABS: Creatinine, Urine 73.6 mg/dL (30.0-125.0)
[2019-05-11 08:35] LABS: Protein, Urine 537.7 mg/dL (0.0-11.9)
[2019-05-11 09:00] VITALS: BP 150/81
--- NOTE | 2019-05-11 09:44 | NUR ---
Was sleeping when assumed care. Placed additional blankets for added warmth as he appeared to be too cold. Arouses and takes in 100% of breakfast. Denies discomfort. Uses motorized scooter to travel in the halls. asks for and provided coffee.
[2019-05-11] MEDS: CARVEDILOL 12.5 MG TAB PO SCH ×2 (10:00→21:15)
[2019-05-11] MEDS: cloNIDine HCL 0.1 MG TAB PO SCH (10:00)
[2019-05-11] MEDS: PANTOPRAZOLE 40 MG/10 ML VIAL INJ IV SCH ×2 (10:00→21:14)
[2019-05-11] MEDS: CLOPIDOGREL BISULFATE 75 MG TAB PO SCH (10:00)
[2019-05-11] MEDS: ISOSORBIDE MONONITRATE ER 60 MG TAB PO SCH (10:00)
[2019-05-11] MEDS ORDERED: ERGOCALCIFEROL 50,000 UNIT(1.25MG) CAP PO SCH (11:15)
[2019-05-11 13:00] VITALS: BP 171/93
--- NOTE | 2019-05-11 14:11 | NUR ---
NUTRITION ASSESSMENT NOTES Please refer to link notes of nutrition screen form filed under the intervention section of the plan of care for further details. Est. Energy Needs: 5312-7499 kcal (25-30 kcal/kg BW). Est. Protein Needs: 87-108 gms/day (1.2-1.5 gms/kg BW). Will continue to monitor pertinent labs and reassess nutrient need prn Addendum: 05/11/19 at [address] Amended: Links added.
[2019-05-11 17:00] VITALS: BP 142/84
--- NOTE | 2019-05-11 18:56 | NUR ---
PT HAS TRAVELED ON HIS ELECTRIC SCOOTER DOWN TO THE LOBBY TO RECEIVE A EDUCATION SUPERVISOR BROUGHT IN BY HIS BROTHER. HE DID NOT RETURN IN A TIMELY MANNER. SECURITY DETERMINES HIS LOCATION ON [address]. STAFF RESPONDS TO BRING HIM BACK TO HIS ROOM.
--- NOTE | 2019-05-11 19:45 | NUR ---
ASSUMED CARE, PT. AWAKE, SITTING ON BED, NO SOB.
[2019-05-11] MEDS: ATORVASTATIN 20 MG TAB PO SCH (21:15)
[2019-05-11] MEDS: ZOLPIDEM TARTRATE 5 MG TAB PO PRN (21:53)
[2019-05-11 22:00] VITALS: BP 145/73
[2019-05-12 05:00] VITALS: BP 148/75
[2019-05-12] MEDS: SUCRALFATE 1 GM/10 ML ORAL SUSP PO SCH ×4 (06:11→21:32)
[2019-05-12] MEDS: InsuLIN REG 1unit/0.01ml Soln (100units/ml) SC SCH ×4 (06:11→21:35)
[2019-05-12] MEDS: ACCU-CHEK COMFORT CURVE STRIP VI SCH ×4 (06:12→21:32)
[2019-05-12] MEDS: HYDROcodone-ACET 5/325MG TAB PO PRN ×4 (06:26→21:06)
[2019-05-12 07:37] LABS: Basophils # (auto) 0 10 ^3/uL (0-0.2); Basophils % (auto) 1.1 % (0.0-2.0); Eosinophils # (auto) 0.1 10 ^3/uL (0-0.8); Eosinophils % (auto) 1.8 % (0.0-7.0); Hematocrit 32.8 % (41.0-53.0); Hemoglobin 10.7 g/dL (13.5-17.5); Lymphocytes # (auto) 0.5 10 ^3/uL (0.4-5.4); Lymphocytes % (auto) 15.4 % (10.0-50.0); Mean Corpuscular Hemoglobin 28.1 pg (28.0-32.0); Mean Corpuscular Hgb Conc. 32.6 g/dL (32.0-36.0); Mean Corpuscular Volume 86.2 fL (80.0-100.0); Monocytes # (auto) 0.3 10 ^3/uL (0-1.3); Neutrophils # (auto) 2.4 10 ^3/uL (1.6-8.6); Neutrophils % (auto) 73.7 % (37.0-80.0); Platelet Count (auto) 133 10^3/uL (140-450); White Blood Cell 3.3 10^3/uL (4.4-10.8)
[2019-05-12 07:48] LABS: Calcium 8.2 mg/dL (8.5-10.1); Potassium 4.7 mmol/L (3.5-5.1)
[2019-05-12 07:54] LABS: BUN/Creatinine Ratio 22.3; Bilirubin, Total 0.9 mg/dL (0.2-1.0); Total Protein 7.4 g/dL (6.4-8.2)
[2019-05-12 08:00] VITALS: BP 145/73
[2019-05-12] MEDS: GLIMEPIRIDE 2 MG TAB PO SCH (08:00)
--- NOTE | 2019-05-12 08:00 | NUR ---
ASSESSMENT NOTE P IS ALERT ORIENTED X4, SITTING AT THE SIDE OF THE BED, STABLES NOTED AT LEFT TEMPORAL AREA OF HIS BED, LEFT FOREARM OPTIFOAM, PT STATED THAT WAS A SCRATCH > , SKIN FISSURE NOTED AT THE SACRUM AREA, PT HAS A SCOOTER AT BED SIDE SINCE HE HAS A POOR BALANCE DUE TO AMPUTATION TO ALL HIS TOES AT HIS RT FOOT, ON FALL RISK PRECAUTIONS AT ALL TIME, NEXT TO THE NURSING STATION, CALL LIGHT WITHIN REACH
[2019-05-12 09:00] VITALS: BP 180/100
[2019-05-12] MEDS: PANTOPRAZOLE 40 MG/10 ML VIAL INJ IV SCH ×2 (09:03→21:32)
[2019-05-12] MEDS: CARVEDILOL 12.5 MG TAB PO SCH ×2 (09:04→21:47)
[2019-05-12] MEDS: cloNIDine HCL 0.1 MG TAB PO SCH (09:05)
[2019-05-12] MEDS: ISOSORBIDE MONONITRATE ER 60 MG TAB PO SCH (09:05)
[2019-05-12 13:00] VITALS: BP 154/84
--- NOTE | 2019-05-12 13:19 | NUR ---
OUT TO RADIOLOGY FOR HIDA SCAN VIA WHEELCHAIR, STABLE, NO DISTRESS NOTED
[2019-05-12 17:00] VITALS: BP 179/90
--- NOTE | 2019-05-12 19:00 | NUR ---
Opening Shift Note Assumed care of patient, awake and alert. No S/S of distress/SOB or pain. Instructed on POC and to call for assist PRN, will continue to monitor for changes Q1hr and PRN.
--- NOTE | 2019-05-12 19:00 | NUR ---
PT CONTINUE STABLE, CONTINUE MONITORING
--- NOTE | 2019-05-12 21:06 | NUR ---
Pain: Patient complaining of 6/10 pain. RN gave PRN [place].
[2019-05-12] MEDS: ZOLPIDEM TARTRATE 5 MG TAB PO PRN (21:07)
[2019-05-12] MEDS: ATORVASTATIN 20 MG TAB PO SCH (21:32)
[2019-05-12 22:00] VITALS: BP 159/77
--- NOTE | 2019-05-12 22:06 | NUR ---
Pain reassessed: RN reassessed patient's pain and noted patient to be resting in bed comfortably with no s/s of discomfort or distress.
--- NOTE | 2019-05-12 22:47 | NUR ---
Patient sleeping: Patient informed RN not to wake him up if he is asleep to recheck his blood pressure. Patient states he has a hard time to fall asleep and wants to be undisturbed as much as possible.
--- NOTE | 2019-05-13 01:00 | NUR ---
Patient out of bed: RN was rounding on patients. RN noted patient to be out of bed stumbling to his scooter and caught himself on his scooter before experiencing a fall. RN assisted patient back to bed. Patient was noted to be half asleep. RN laid patient back down and patient was resting in bed peacefully. RN ensured bed alarm was in place and adequate levels of light for patient to properly see. Bed remains in lowest position and call light in patient's hands. RN provided teaching to patient to call for assistance. Patient verbalized understanding of teaching provided.
[2019-05-13] MEDS: HYDROcodone-ACET 5/325MG TAB PO PRN ×4 (01:06→21:00)
--- NOTE | 2019-05-13 04:28 | NUR ---
Wound care: RN attempted to provide dressing change to left FA ST but patient refused. Patient states "its okay" and didn't want it messed with.
[2019-05-13 05:00] VITALS: BP 153/86
--- NOTE | 2019-05-13 05:36 | NUR ---
Blood glucose: Patient informed he wanted his blood glucose performed early this morning because he did not want to be poked so many times since lab was already in to see him and draw blood. Blood glucose was performed now per patient request.
[2019-05-13] MEDS: ACCU-CHEK COMFORT CURVE STRIP VI SCH ×4 (05:38→21:39)
[2019-05-13] MEDS: InsuLIN REG 1unit/0.01ml Soln (100units/ml) SC SCH ×4 (05:38→21:41)
--- NOTE | 2019-05-13 05:54 | NUR ---
Pain: Patient complaining of 6/10 pain. RN gave PRN [place].
[2019-05-13] MEDS: SUCRALFATE 1 GM/10 ML ORAL SUSP PO SCH ×4 (06:32→21:38)
--- NOTE | 2019-05-13 06:33 | NUR ---
Pain reassessed: RN reassessed patient's pain and noted patient to be resting in bed comfortably with no s/s of discomfort or distress.
[2019-05-13 07:02] LABS: Basophils # (auto) 0 10 ^3/uL (0-0.2); Basophils % (auto) 0.5 % (0.0-2.0); Eosinophils # (auto) 0.1 10 ^3/uL (0-0.8); Eosinophils % (auto) 2.1 % (0.0-7.0); Hematocrit 27.5 % (41.0-53.0); Hemoglobin 9.1 g/dL (13.5-17.5); Lymphocytes # (auto) 0.5 10 ^3/uL (0.4-5.4); Lymphocytes % (auto) 17.6 % (10.0-50.0); Mean Corpuscular Hemoglobin 28.1 pg (28.0-32.0); Mean Corpuscular Hgb Conc. 33.2 g/dL (32.0-36.0); Mean Corpuscular Volume 84.7 fL (80.0-100.0); Monocytes # (auto) 0.3 10 ^3/uL (0-1.3); Monocytes % (auto) 9.3 % (0.0-12.0); Neutrophils % (auto) 70.5 % (37.0-80.0); Platelet Count (auto) 114 10^3/uL (140-450); Red Blood Cells 3.24 10^6/uL (4.5-5.90); Red Cell Distribution Width 17.1 % (11.8-14.3); White Blood Cell 2.8 10^3/uL (4.4-10.8)
[2019-05-13 07:12] LABS: Potassium 4.5 mmol/L (3.5-5.1)
[2019-05-13 07:20] LABS: Albumin 2.5 g/dL (3.4-5.0); BUN/Creatinine Ratio 24.2; Bilirubin, Total 0.9 mg/dL (0.2-1.0); Calcium 7.9 mg/dL (8.5-10.1)
--- NOTE | 2019-05-13 07:40 | NUR ---
Opening shift note Assumed care of patient from NOC Guy Son. Patient is AOx4 exhibiting no S/S of SOB, pain, or distress. Bed is in lowest locked position with side rails up x2, call light within reach. Updated patient on plan of care, patient verbalized understanding. I will continue to monitor q1hr and PRN.
[2019-05-13] MEDS: GLIMEPIRIDE 2 MG TAB PO SCH (08:06)
[2019-05-13 09:25] VITALS: BP 147/78
[2019-05-13] MEDS: PANTOPRAZOLE 40 MG/10 ML VIAL INJ IV SCH ×2 (09:46→21:38)
[2019-05-13] MEDS: ISOSORBIDE MONONITRATE ER 60 MG TAB PO SCH (09:50)
[2019-05-13] MEDS: cloNIDine HCL 0.1 MG TAB PO SCH (09:50)
[2019-05-13] MEDS: CARVEDILOL 12.5 MG TAB PO SCH ×2 (09:51→21:38)
[2019-05-13 13:27] VITALS: BP 133/69
[2019-05-13] MEDS: ALPRAZolam 0.25 MG TAB PO PRN (16:47)
[2019-05-13] MEDS: FUROSEMIDE 20 MG TAB PO SCH (16:48)
[2019-05-13 16:49] VITALS: BP 175/92
--- NOTE | 2019-05-13 19:10 | NUR ---
Closing shift note Care of patient endorsed to NOC WILMER Bermudez. Patient has no s/s of sob, pain or distress at this time.
[2019-05-13] MEDS: MORPHINE SULF INJ 2 MG/ML SYRINGE 1ML IV PRN (20:51)
--- NOTE | 2019-05-13 20:58 | NUR ---
WITNESSED WASTE OF MORPHINE. PATIENT CHANGED MIND AND WANTED TO HAVE NORCO INSTEAD.
[2019-05-13] MEDS: ATORVASTATIN 20 MG TAB PO SCH (21:38)
[2019-05-13] MEDS: ZOLPIDEM TARTRATE 5 MG TAB PO PRN (21:38)
[2019-05-13 21:54] VITALS: BP 171/88
--- NOTE | 2019-05-13 22:16 | NUR ---
CALLED PLACED TO DR. HUITRON FOR ELEVATED BLOOD PRESSURE.
[2019-05-13] MEDS ORDERED: hydrALAZINE HCL 20 MG/ML VL IV SCH (22:30)
[2019-05-13] MEDS: hydrALAZINE HCL 20 MG/ML VL IV PRN (22:37)
[2019-05-14] VITALS (7 sets, daily range): BP systolic 140–177; BP diastolic 68–93
[2019-05-14] MEDS: hydrALAZINE HCL 20 MG/ML VL IV PRN (02:16)
[2019-05-14] MEDS: ALPRAZolam 0.25 MG TAB PO PRN ×2 (04:33→21:39)
[2019-05-14] MEDS: ACCU-CHEK COMFORT CURVE STRIP VI SCH ×4 (06:45→21:49)
[2019-05-14] MEDS: SUCRALFATE 1 GM/10 ML ORAL SUSP PO SCH ×4 (06:45→21:38)
[2019-05-14] MEDS: InsuLIN REG 1unit/0.01ml Soln (100units/ml) SC SCH ×4 (06:50→21:49)
[2019-05-14 07:38] LABS: Basophils # (auto) 0 10 ^3/uL (0-0.2); Basophils % (auto) 0.8 % (0.0-2.0); Eosinophils # (auto) 0.1 10 ^3/uL (0-0.8); Eosinophils % (auto) 2.2 % (0.0-7.0); Hemoglobin 10.5 g/dL (13.5-17.5); Lymphocytes # (auto) 0.5 10 ^3/uL (0.4-5.4); Lymphocytes % (auto) 11.7 % (10.0-50.0); Mean Corpuscular Hemoglobin 27.9 pg (28.0-32.0); Mean Corpuscular Hgb Conc. 32.7 g/dL (32.0-36.0); Mean Corpuscular Volume 85.6 fL (80.0-100.0); Monocytes # (auto) 0.4 10 ^3/uL (0-1.3); Monocytes % (auto) 10.3 % (0.0-12.0); Neutrophils # (auto) 3.1 10 ^3/uL (1.6-8.6); Platelet Count (auto) 135 10^3/uL (140-450); Red Blood Cells 3.74 10^6/uL (4.5-5.90); Red Cell Distribution Width 17.2 % (11.8-14.3); White Blood Cell 4.1 10^3/uL (4.4-10.8)
[2019-05-14] MEDS: HYDROcodone-ACET 5/325MG TAB PO PRN ×3 (07:44→21:55)
[2019-05-14 07:52] LABS: BUN/Creatinine Ratio 23.3; Calcium 8.5 mg/dL (8.5-10.1); Potassium 4.2 mmol/L (3.5-5.1)
[2019-05-14] MEDS: GLIMEPIRIDE 2 MG TAB PO SCH (08:00)
[2019-05-14] MEDS: PANTOPRAZOLE 40 MG/10 ML VIAL INJ IV SCH ×2 (09:38→21:38)
[2019-05-14] MEDS: ISOSORBIDE MONONITRATE ER 60 MG TAB PO SCH (09:39)
[2019-05-14] MEDS: CARVEDILOL 12.5 MG TAB PO SCH ×2 (09:39→21:41)
[2019-05-14] MEDS: cloNIDine HCL 0.1 MG TAB PO SCH (09:39)
[2019-05-14] MEDS: FUROSEMIDE 20 MG TAB PO SCH (09:40)
[2019-05-14] MEDS: MORPHINE SULF INJ 2 MG/ML SYRINGE 1ML IV PRN (12:22)
--- NOTE | 2019-05-14 19:18 | NUR ---
closing shift note Care of patient endorsed to NOC WILMER Bermudez. NO S/S of pain, distress, or sob noted at this time.
--- NOTE | 2019-05-14 19:59 | NUR ---
PATIENT WENT DOWNSTAIRS TO SMOKE. PATIENT HAS SIGNED AMA TO SMOKE.
[2019-05-14] MEDS: ATORVASTATIN 20 MG TAB PO SCH (21:39)
[2019-05-14] MEDS: ZOLPIDEM TARTRATE 5 MG TAB PO PRN (23:55)
[2019-05-15 05:37] VITALS: BP 135/58
[2019-05-15] MEDS: SUCRALFATE 1 GM/10 ML ORAL SUSP PO SCH ×4 (06:30→22:08)
[2019-05-15] MEDS: InsuLIN REG 1unit/0.01ml Soln (100units/ml) SC SCH ×4 (06:54→22:10)
[2019-05-15] MEDS: HYDROcodone-ACET 5/325MG TAB PO PRN ×3 (06:55→21:05)
[2019-05-15] MEDS: ACCU-CHEK COMFORT CURVE STRIP VI SCH ×4 (06:55→22:10)
[2019-05-15] MEDS: GLIMEPIRIDE 2 MG TAB PO SCH (08:00)
[2019-05-15 09:00] VITALS: BP 146/59
[2019-05-15] MEDS: PANTOPRAZOLE 40 MG/10 ML VIAL INJ IV SCH ×2 (09:35→22:08)
[2019-05-15] MEDS: CARVEDILOL 12.5 MG TAB PO SCH ×2 (09:41→22:08)
[2019-05-15] MEDS: ISOSORBIDE MONONITRATE ER 60 MG TAB PO SCH (09:42)
[2019-05-15] MEDS: cloNIDine HCL 0.1 MG TAB PO SCH (09:42)
[2019-05-15] MEDS: FUROSEMIDE 20 MG TAB PO SCH (11:36)
[2019-05-15 13:00] VITALS: BP 140/77
--- NOTE | 2019-05-15 14:15 | NUR ---
SPOKE WITH GI DOCTOR INFORMED MD SHANKS PATIENT HAS BEEN NPO SINCE MIDNIGHT BUT PER DR. ATKINS EGD WAS TO BE DONE THURSDAY. SAID IT IS OKAY TO FEED PATIENT HIS NORMAL DIET AND KEEP PATIENT NPO AFTER MIDNIGHT
[2019-05-15 17:00] VITALS: BP 149/69
--- NOTE | 2019-05-15 19:05 | NUR ---
closing shift note care of patient endorsed to NOC WILMER Bermudez. No s/s of pain, distress, and sob at this time.
[2019-05-15] MEDS: ALPRAZolam 0.25 MG TAB PO PRN (21:05)
[2019-05-15 22:00] VITALS: BP 157/63
[2019-05-15] MEDS: ATORVASTATIN 20 MG TAB PO SCH (22:08)
[2019-05-16 05:45] VITALS: BP 174/90
[2019-05-16] MEDS: hydrALAZINE HCL 20 MG/ML VL IV PRN (06:00)
[2019-05-16] MEDS: SUCRALFATE 1 GM/10 ML ORAL SUSP PO SCH ×4 (06:49→21:06)
[2019-05-16] MEDS: InsuLIN REG 1unit/0.01ml Soln (100units/ml) SC SCH ×4 (06:50→21:20)
[2019-05-16] MEDS: ACCU-CHEK COMFORT CURVE STRIP VI SCH ×4 (06:50→21:17)
[2019-05-16 06:55] VITALS: BP 130/72
[2019-05-16 08:00] LABS: Basophils # (auto) 0 10 ^3/uL (0-0.2); Basophils % (auto) 1.3 % (0.0-2.0); Eosinophils # (auto) 0.1 10 ^3/uL (0-0.8); Hematocrit 30.8 % (41.0-53.0); Lymphocytes # (auto) 0.6 10 ^3/uL (0.4-5.4); Lymphocytes % (auto) 16.1 % (10.0-50.0); Mean Corpuscular Hemoglobin 27.6 pg (28.0-32.0); Mean Corpuscular Hgb Conc. 32.4 g/dL (32.0-36.0); Mean Corpuscular Volume 85.2 fL (80.0-100.0); Monocytes # (auto) 0.4 10 ^3/uL (0-1.3); Monocytes % (auto) 12.3 % (0.0-12.0); Neutrophils # (auto) 2.3 10 ^3/uL (1.6-8.6); Neutrophils % (auto) 67.3 % (37.0-80.0); Nucleated Red Blood Cells % 0.1 %; Platelet Count (auto) 128 10^3/uL (140-450); Red Blood Cells 3.62 10^6/uL (4.5-5.90); Red Cell Distribution Width 17.1 % (11.8-14.3); White Blood Cell 3.5 10^3/uL (4.4-10.8)
[2019-05-16] MEDS: GLIMEPIRIDE 2 MG TAB PO SCH (08:00)
[2019-05-16] MEDS ORDERED: SODIUM CHLORIDE LOCK 10 ML ONE (08:04)
[2019-05-16] MEDS ORDERED: LIDOCAINE VISCOUS 2% 15ML UD ONE (08:04)
[2019-05-16] MEDS ORDERED: NALOXONE HCL 0.4 MG/ML VIAL ONE (08:04)
[2019-05-16] MEDS ORDERED: FLUMAZENIL 0.1 MG/ML INJ 10ML MDV IV ONE (08:04)
[2019-05-16] MEDS ORDERED: diphenhdrAMINE HCL 50 MG/1 ML VL ONE (08:05)
[2019-05-16 08:14] LABS: INR 1.14 (0.9-1.15); Partial Thromboplastin Time 28.8 sec (23.64-32.05)
--- NOTE | 2019-05-16 08:45 | NUR ---
Patient off unit Took patient down to pre op for procedure. Reviewed consents with receiving DORMITORY MAID. Patient is stable exhibiting no S/S of distress or SOB at this time.
[2019-05-16 09:00] VITALS: BP 151/73
[2019-05-16] MEDS: MIDAZOLAM HCL 5 MG/ML-1ML VIAL ONE ×2 (09:18→09:21)
[2019-05-16] MEDS: fentaNYL CITRATE 100 MCG/2 ML VL ONE ×2 (09:18→09:21)
[2019-05-16] MEDS: PANTOPRAZOLE 40 MG/10 ML VIAL INJ IV SCH ×2 (11:08→21:06)
[2019-05-16] MEDS: CARVEDILOL 12.5 MG TAB PO SCH ×2 (11:09→21:51)
[2019-05-16] MEDS: ISOSORBIDE MONONITRATE ER 60 MG TAB PO SCH (11:09)
[2019-05-16] MEDS: cloNIDine HCL 0.1 MG TAB PO SCH (11:10)
[2019-05-16] MEDS: FUROSEMIDE 20 MG TAB PO SCH (11:11)
[2019-05-16 13:00] VITALS: BP 143/60
--- NOTE | 2019-05-16 14:55 | NUR ---
assessment Patient is a 68 year old male who is alert and oriented. Patients cognitive abilities are intact. Prior to admission patient lived home with his brother and family and functioned with assistance. Per patient he will return home to his prior living arrangements post discharge and family will transport him home. Patient informed me his brother Michael is his [facility] caregiver. Patient informed me he feels safe returning home on discharge. Patient informed me he is on service with [employer] Patient will need a resumption order on discharge. I informed patient he has a right to speak to a social media analyst regarding all care. I informed patient he has a right to participate in any and all discharge planning. Patient does not have a POA and advanced directive. I have offered patient information on POA and advanced directives. I informed the patient the advantages and benefits of having an Advanced Directive. Patient verbalized understanding and agreed to discharge plan. Addendum: 05/16/19 at 1457 by Marifer SOUZA Amended: Links added.
--- NOTE | 2019-05-16 15:45 | NUR ---
Physician at bedside MD Siddiqi at bedside, update him on patient status. Per MD patient can be discharged home tomorrow 05-17-19, CBC to be drawn tomorrow and no hematology oncology consult is needed, will follow through with MD orders.
[2019-05-16 17:00] VITALS: BP 143/61
--- NOTE | 2019-05-16 17:14 | NUR ---
Spoke to Patients brother Michael. Updated him on patient plan of care.
[2019-05-16] MEDS: HYDROcodone-ACET 5/325MG TAB PO PRN ×2 (17:25→23:33)
--- NOTE | 2019-05-16 19:35 | NUR ---
Opening Shift Note Assumed care of patient, awake and alert. No S/S of distress/SOB or pain. Insructed on POC and to callfor assist PRN, will continue to monitor for changes Q1hr and PRN. Fall and safety precautions in place. Call light within reach.
--- NOTE | 2019-05-16 19:50 | NUR ---
closing shift note care of patient endorsed to NOC RN. No s/s of pain, distress, and sob at this time.
[2019-05-16] MEDS: ATORVASTATIN 20 MG TAB PO SCH (21:05)
[2019-05-16] MEDS: ALPRAZolam 0.25 MG TAB PO PRN (21:06)
[2019-05-16 22:00] VITALS: BP 156/70
[2019-05-16] MEDS: ZOLPIDEM TARTRATE 5 MG TAB PO PRN (23:36)
[2019-05-17] MEDS: HYDROcodone-ACET 5/325MG TAB PO PRN ×3 (00:44→12:43)
[2019-05-17 05:00] VITALS: BP 164/79
[2019-05-17] MEDS: SUCRALFATE 1 GM/10 ML ORAL SUSP PO SCH ×2 (05:50→11:44)
[2019-05-17] MEDS: hydrALAZINE HCL 20 MG/ML VL IV PRN (05:51)
[2019-05-17] MEDS: InsuLIN REG 1unit/0.01ml Soln (100units/ml) SC SCH ×2 (05:58→11:30)
[2019-05-17] MEDS: ACCU-CHEK COMFORT CURVE STRIP VI SCH ×2 (05:58→11:44)
[2019-05-17 06:43] LABS: Basophils # (auto) 0 10 ^3/uL (0-0.2); Basophils % (auto) 1.2 % (0.0-2.0); Eosinophils # (auto) 0.1 10 ^3/uL (0-0.8); Eosinophils % (auto) 2.2 % (0.0-7.0); Hematocrit 32.7 % (41.0-53.0); Hemoglobin 10.7 g/dL (13.5-17.5); Lymphocytes # (auto) 0.6 10 ^3/uL (0.4-5.4); Mean Corpuscular Hemoglobin 27.7 pg (28.0-32.0); Mean Corpuscular Hgb Conc. 32.7 g/dL (32.0-36.0); Mean Corpuscular Volume 84.7 fL (80.0-100.0); Monocytes # (auto) 0.5 10 ^3/uL (0-1.3); Neutrophils # (auto) 2.6 10 ^3/uL (1.6-8.6); Neutrophils % (auto) 68.6 % (37.0-80.0); Platelet Count (auto) 131 10^3/uL (140-450); Red Blood Cells 3.86 10^6/uL (4.5-5.90); Red Cell Distribution Width 16.8 % (11.8-14.3); White Blood Cell 3.8 10^3/uL (4.4-10.8)
--- NOTE | 2019-05-17 08:00 | NUR ---
Opening Shift Note Assumed care of patient, awake, alert and oriented X4. No S/S of distress/SOB or pain. Tele# 5, sinus bradycardia @ 57 bpm. Posterior scalp laceration with vikas intact, open to air, no drainage or odor noted. IV to right hand, 22 gauge, patent and saline locked. Patient has multiple bruises and skin tears, see wound care notes, dressings all intact. Instructed on POC and to call for assist PRN, verbalized understanding. Bed locked, in lowest position, call light within reach, will continue to monitor for changes Q1hr and PRN.
[2019-05-17] MEDS: GLIMEPIRIDE 2 MG TAB PO SCH (08:17)
[2019-05-17 09:00] VITALS: BP 132/57
--- NOTE | 2019-05-17 09:45 | NUR ---
ROUNDS Dr Siddiqi at bedside for rounds, new orders received and followed through. Patient updated on plan of care, verbalized understanding.
[2019-05-17] MEDS: PANTOPRAZOLE 40 MG/10 ML VIAL INJ IV SCH (10:31)
[2019-05-17] MEDS: cloNIDine HCL 0.1 MG TAB PO SCH (10:32)
[2019-05-17] MEDS: CARVEDILOL 12.5 MG TAB PO SCH (10:33)
[2019-05-17] MEDS: FUROSEMIDE 20 MG TAB PO SCH (10:34)
[2019-05-17] MEDS: ISOSORBIDE MONONITRATE ER 60 MG TAB PO SCH (10:34)
--- NOTE | 2019-05-17 10:45 | NUR ---
GI Dr Dumas at bedside for GI follow up. No new orders received at this time. Patient updated on plan of care, verbalized understanding.
--- NOTE | 2019-05-17 11:00 | NUR ---
WOUND CARE NOTE: IN TO SEE PATIENT AT THIS TIME TO RE-ASSESS PATIENT'S WOUNDS, AND TAKE DISCHARGE PHOTOS. PATIENT HAS CURRENT TAMRA SCORE OF 18. PATIENT IS ABLE TO SELF TURN/REPOSITION SELF. WOUND PHOTOS TAKEN OF ALL WOUNDS AT THIS TIME FOR REFERENCE. SKIN TEAR TO THE LEFT LOWER ARM IS RESOLVING WELL, MEASURING 1.2 X 0.3 CM APPLIED THERAHONEY, OPTIFOAM GENTLE DRESSING APPLIED PER MD ORDER. SACRUM CONTINUES TO BE NON BLANCHABLE, INTACT, OVER RAISED COLLAGEN SCAR. HE IS WHEELCHAIR BOUND, SITTING ALL DAY IN HIS WHEELCHAIR. APPLIED OPTIFOAM GENTLE SACRAL DRESSING TO AREA. LEFT CHEST INCISION IS INTACT, WELL APPROXIMATED. ABLE TO LEAVE IT OPEN TO AIR. RIGHT METATARSAL AMPUTATION STUMP IS INTACT, BROWN ESCHAR SCAB NOTED ALONG INCISION SCAR. LEFT OPEN TO AIR. PATIENT EDUCATED IN PRESSURE REDISTRIBUTION AND DRESSING CHANGE INSTRUCTIONS. PATIENT VERBALIZED UNDERSTANDING. PATIENT SHOULD BE DISCHARGING HOME THIS PM. WOUND CARE TEAM WILL CONTINUE TO MONITOR UNTIL DISCHARGE. Addendum: 05/17/19 at 1450 by Maria Alejandra Petit RN Amended: Links added.
[2019-05-17 12:37] VITALS: BP 149/71
[2019-05-17 15:37] VITALS: BP 149/71
--- NOTE | 2019-05-17 15:38 | NUR ---
Nutrition Follow-up Notes Wt.: 69.8 kg today Pt currently on CCHO 60g, Cardiac diet with good PO intake aeb avg 90%. Will monitor and follow up prn. Est. Energy Needs: 2203-1557 kcal (25-30 kcal/kg BW). Est. Protein Needs: 87-108 gms/day (1.2-1.5 gms/kg BW). Labs 05/13: Cl 109 H, BUN 70 H, Cr 3.01 H. POC 107 H (05/16). Skin: Israel scale 17, mod risk, skin tear to LL arm, redness to medial sacrum, vikas to L temporal, per desk attendant. GI: Pt had BM 05/16/19 per desk attendant. PES: 1) Altered nutrition related lab values r/t current medical condition aeb elevated RFTs, hypocalcemia, hypoalbuminemia Will continue to monitor PO intake, pertinent labs, skin status and weight trends. F/u in 3 to 5 days. Additional Recommendation: 1) Consider Prostat 1 pkt BID, Daily MVi with minerals tab, Vitamin C 500 mg BID 2) Continue close supervision and feeding assistance prn during meals. 3) Continue current plan of care.
[2019-05-17] MEDS: ALPRAZolam 0.25 MG TAB PO PRN (16:17)
--- NOTE | 2019-05-17 16:29 | NUR ---
Discharge instructions given as ordered. Encourage to follow up with PMD as instructed. All questions and concerns addressed. Patient verbalized understanding. Medication reconciliation form completed and copy given to patient. IV removed with catheter intact, pressure dressing applied. Telemetry unit returned to ICU. Patient awaiting family for transportation.
--- NOTE | 2019-05-17 16:42 | NUR ---
Patient taken to vehicle via wheelchair with all personal belongings, accompanied by staff and family member. No distress noted at time of departure.
== END 2019-05-17 16:50 | disposition home or self-care (01) | DRG 377 ==
LOC: ER 12:46 → TELE 12:47 → TELE-EAST 22:41
PROVIDERS: ADMIT Internal Medicine; ATTEND Internal Medicine
PROC: 0DB68ZX Excision of Stomach, Via Natural or Artificial Opening Endoscopic, Diagnostic (ICD-10-PCS; principal; 2019-05-16 09:12)
DX: K29.71 Gastritis, unspecified, with bleeding (principal); N17.0 Acute kidney failure with tubular necrosis; I13.0 Hypertensive heart and chronic kidney disease with heart failure and stage 1 through stage 4 chronic kidney disease, or unspecified chronic kidney disease; N18.4 Chronic kidney disease, stage 4 (severe); I50.9 Heart failure, unspecified; R79.89 Other specified abnormal findings of blood chemistry; E11.22 Type 2 diabetes mellitus with diabetic chronic kidney disease; E78.5 Hyperlipidemia, unspecified; I25.10 Atherosclerotic heart disease of native coronary artery without angina pectoris; D64.9 Anemia, unspecified; Z21 Asymptomatic human immunodeficiency virus [HIV] infection status; E11.51 Type 2 diabetes mellitus with diabetic peripheral angiopathy without gangrene; Z86.73 Personal history of transient ischemic attack (TIA), and cerebral infarction without residual deficits; Z95.0 Presence of cardiac pacemaker; Z95.1 Presence of aortocoronary bypass graft; Z79.899 Other long term (current) drug therapy; Z80.9 Family history of malignant neoplasm, unspecified; Z82.49 Family history of ischemic heart disease and other diseases of the circulatory system; Z87.891 Personal history of nicotine dependence; Z83.3 Family history of diabetes mellitus; Z82.3 Family history of stroke; Z80.3 Family history of malignant neoplasm of breast; Z81.8 Family history of other mental and behavioral disorders; Z82.61 Family history of arthritis; E11.40 Type 2 diabetes mellitus with diabetic neuropathy, unspecified
CPT/HCPCS: 12002; 36415; 43239; 70450; 71045; 72125; 74176; 76775; 78226; 80048; 80053; 81001; 82306; 82570; 82962; 83036; 83735; 83880; 83970; 84100; 84156; 84300; 84484; 84550; 85025; 85610; 85730; 86677; 87081; 90471; 90715; 93005; 96374; 96375; C9113; G0378; J1815; J2250; J2405